=== PATIENT | male | born 1955 | race Caucasian/White ===

== ENCOUNTER → 2018-05-17 06:58 | Outpatient (CLI) | payer BC, SELFPAY ==
--- NOTE | 2018-05-17 07:08 | XR_ITS ---
XR shoulder RT min 2V HISTORY: ITS.REASON: ROTATOR CUFF SYNDROME, shoulder pain ORDERING PHYSICIAN: Saud Knox MD PATIENT AGE: 63 years Comparison: None FINDINGS: There is mild acromioclavicular arthropathy. There is a downsloping acromion laterally with subacromial stenosis. Mild osteoarthritic changes are also present at the glenohumeral joint. No fracture or dislocation. No lytic or blastic change. Incidental calcified granuloma noted in the right upper lobe. 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 MRI may confirm if clinically warranted.
[2018-05-17 08:23] LABS: Basophils # 0.1 K/mm3 (0-0.2); Basophils % 0.8 % (0.1-2.0); Eosinophils # 0.4 K/mm3 (0.0-0.4); Eosinophils % 5.2 % (0.1-12.0); Hematocrit 40.3 % (42.0-52.0); Hemoglobin 13.5 g/dL (14.1-18.0); Lymphocytes # 1.4 K/mm3 (0.7-4.5); Mean Corpuscular HGB Conc 33.6 g/dL (31.8-35.4); Mean Corpuscular Hemoglobin 28.5 pg (27.0-31.2); Mean Corpuscular Volume 84.9 fl (80-94); Mean Platelet Volume 6.8 fl (7.4-10.4); Monocytes # 0.6 K/mm3 (0.1-1.0); Monocytes % 7.5 % (1.7-9.3); Neutrophils # 5.4 K/mm3 (1.8-7.8); Neutrophils % 68.4 % (37.0-80.0); Platelet Count 199 K/mm3 (142-424); Red Blood Count 4.75 M/mm3 (4.60-6.20); Red Cell Distribution Width 13.7 % (11.5-17.5); White Blood Count 7.9 K/mm3 (4.8-10.8)
[2018-05-17 09:18] LABS: Alanine Aminotransferase 22 U/L (12-78); Albumin Level 3.5 gm/dL (3.4-5.0); Alkaline Phosphatase 80 U/L (46-116); Anion Gap 5.4 mEq/L (5-15); Aspartate Amino Transferase 9 U/L (15-37); Bilirubin,Direct 0.1 mg/dL (0.0-0.2); Bilirubin,Indirect 0.5 mg/dL (0.0-0.9); Bilirubin,Total 0.6 mg/dL (0.2-1.0); Blood Urea Nitrogen 20 mg/dL (7-18); Calcium 8.5 mg/dL (8.5-10.1); Carbon Dioxide 38 mmol/L (21.0-32.0); Chloride 104 mmol/L (98-107); Chol/HDL Ratio 4.6 (1-3.5); Cholesterol 179 mg/dL (140-200); Creatinine,Serum 1.03 mg/dL (0.70-1.30); Estimated Glomerular Filt Rate 73 ml/min (>60); Free T4 (Free Thyroxine) 0.97 ng/dl (0.76-1.46); GFR (African American) 89 ML/MIN (>60); Glucose 103 mg/dL (74-106); HDL Cholesterol 39 mg/dL (27-67); LDL Cholesterol 126 mg/dL (0-130); Potassium 3.4 mmoL/L (3.5-5.1); Sodium 144 mmol/L (136-145); Thyroid Stimulating Hormone 4.19 uIU/ml (0.358-3.740); Total Protein,Serum 6.6 gm/dL (6.4-8.2); Triglycerides 70 mg/dL (30-200); VLDL Cholesterol 14 mg/dL (0-40)
== END ==
PROVIDERS: PCP Family Medicine; Visit Provider Internal Medicine
DX: I10 Essential (primary) hypertension (principal); I20.9 Angina pectoris, unspecified; R06.00 Dyspnea, unspecified; R60.9 Edema, unspecified; Z82.49 Family history of ischemic heart disease and other diseases of the circulatory system; I51.9 Heart disease, unspecified; M25.511 Pain in right shoulder
CPT/HCPCS: 36415; 73030; 80048; 80061; 80076; 84439; 84443; 85025

== ENCOUNTER → 2018-06-19 07:41 | Outpatient (CLI) | payer BC, SELFPAY ==
[2018-06-19 09:28] LABS: Alanine Aminotransferase 23 U/L (12-78); Albumin Level 3.4 gm/dL (3.4-5.0); Alkaline Phosphatase 81 U/L (46-116); Anion Gap 8.3 mEq/L (5-15); Aspartate Amino Transferase 12 U/L (15-37); Bilirubin,Direct 0.1 mg/dL (0.0-0.2); Bilirubin,Indirect 0.4 mg/dL (0.0-0.9); Bilirubin,Total 0.5 mg/dL (0.2-1.0); Blood Urea Nitrogen 21 mg/dL (7-18); Calcium 8.3 mg/dL (8.5-10.1); Carbon Dioxide 35 mmol/L (21.0-32.0); Chloride 103 mmol/L (98-107); Chol/HDL Ratio 3.1 (1-3.5); Cholesterol 143 mg/dL (140-200); Creatinine,Serum 1.01 mg/dL (0.70-1.30); Estimated Glomerular Filt Rate 75 ml/min (>60); GFR (African American) 91 ML/MIN (>60); Glucose 96 mg/dL (74-106); HDL Cholesterol 46 mg/dL (27-67); LDL Cholesterol 90 mg/dL (0-130); Potassium 3.3 mmoL/L (3.5-5.1); Sodium 143 mmol/L (136-145); Total Protein,Serum 6.4 gm/dL (6.4-8.2); Triglycerides 37 mg/dL (30-200); VLDL Cholesterol 7 mg/dL (0-40)
== END ==
PROVIDERS: PCP Family Medicine; Visit Provider Urology
DX: E78.5 Hyperlipidemia, unspecified (principal); I10 Essential (primary) hypertension; E03.9 Hypothyroidism, unspecified
CPT/HCPCS: 36415; 80048; 80061; 80076

== ENCOUNTER → 2020-09-06 16:20 | Outpatient (CLI) | payer BC, SELFPAY | PROVIDERS: PCP Nurse Practitioner; Visit Provider Nurse Practitioner | DX: Z20.828 Contact with and (suspected) exposure to other viral communicable diseases (principal); U07.1 COVID-19 | CPT/HCPCS: U0003 ==

== ENCOUNTER 2021-01-03 08:37 | Emergency (ER) | payer BC, SELFPAY ==
[2021-01-03 08:38] VITALS: BP 144/86; PULSE 65; RESP 18; TEMP 36.6; O2SAT 98; BMI 34.5
--- NOTE | 2021-01-03 10:09 | HMH.EDGENADL ---
ED Disposition Clinical Impression: Complex laceration of left ear Disposition: Home, Self-Care Condition on Discharge: Good Instructions: DI for Laceration Repair Additional Instructions: Follow-up with swine genetics researcher within the next 5 to 7 days for reexamination, please call Dr Parikh's office at [phone], for followup. Take antibiotics as prescribed. Return to emergency department within the next 24 hours should she have worsening pain fever nausea vomiting or any other concerns Prescriptions: cephALEXin [Cephalexin 500mg Tab] 500 mg PO BID 5 Days #10 tab Transmission Status: Pending to [facility] Ciprofloxacin HCl 500 mg PO BID 5 Days #10 tab Transmission Status: Pending to [id number] Referrals: Sergio Duran MD [Primary Care Provider] - - Critical Care Critical Care Time: No Attestation: On 01/03/21, the high probability of a clinically significant, sudden or life threatening deterioration of the following system(s) required my full and direct attention, intervention and personal management. The time I documented below is in addition to time spent performing reported procedures but includes the following listed in this critical care notation. Medical Decision Making - Medical Records Medical records reviewed: Yes: I reviewed the patient's medical records. - Tanner Inquiry Pt receiving controlled substance: No Vital Signs: 01/03/21 08:38 Temperature 97.9 F Temperature Source Oral Pulse Rate [Left Radial] 65 Respiratory Rate 18 Blood Pressure [Right Arm] 144/86 H Blood Pressure Mean [Right Arm] 105 02 Sat by Pulse Oximetry 98 Oxygen Delivery Method Room Air Orders (Tests/Meds): ED MEDICATIONS Discontinued Medications Generic Name Dose Route Start Last Admin Trade Name Rahul PRN Reason Stop Dose Admin Lidocaine HCl 20 ml 01/03/21 09:05 01/03/21 09:07 Lidocaine 1% 20ml Mdv IJ 01/03/21 09:06 20 ml ONCE ONE Administration Tetanus/Reduced Diphtheria/Acell Pertussis 0.5 ml 01/03/21 10:07 Tet/Diphth/Pert-Adult 0.5ml Syringe IM 01/03/21 10:08 .ONCE ONE Medical Decision Narrative: Patient presents with complex ear laceration as above. He was in no acute distress nontoxic-appearing negative per [place] head CT rule and no indication with normal neurological exam for further imaging of head. He also was negative per his criteria for cervical spine emergency. The ear laceration was an ethicist sized with ear block and copiously irrigated. Hematoma was removed prior to laceration repair. Laceration was repaired at bedside with appropriate reapproximation of perichondrium and skin layer using Monocryl 5.0 he will return for strict return precautions as well. Tetanus was updated as well. Due to risk for infection in place and was placed in a compressive head dressing with Xeroform gauze over site of laceration. In addition we will cover him with antimicrobial coverage including coverage for Pseudomonas. He is agreeable to follow-up with swine genetics researcher for reexamination. General Adult HPI - General Chief complaint: Wound/Laceration Stated complaint: [id number] fell and hit ear Time Seen by Provider: 01/03/21 08:40 Mode of Arrival: Ambulatory Limitations: No Limitations Description of Symptoms (Recalled from ER Triage Doc. by RN): Pt states he was dreaming and rolled out of bed, thinks he hit head/ear on night stand, ear lacerations present to left ear - History of Present Illness HPI narrative: 65-year-old male presents with laceration to his left ear. He says that he rolled out of bed and had it on the hardwood floor. No loss of consciousness headache nausea vomiting seizures numbness weakness or tingling arms or legs. No neck tenderness or pain. He says the bleeding was profuse initially he is on a baby aspirin however it is better now. Tetanus shot has been over 10 years ago. Location: left Radi
[2021-01-03 10:38] VITALS: BP 144/86; PULSE 65; RESP 18; TEMP 36.6; O2SAT 98
== END 2021-01-03 10:42 | disposition home or self-care (01) ==
PROVIDERS: Emergency Provider Emergency Medicine; PCP Family Medicine
DX: S01.312A Laceration without foreign body of left ear, initial encounter (principal); W06.XXXA Fall from bed, initial encounter; Y92.013 Bedroom of single-family (private) house as the place of occurrence of the external cause; Z23 Encounter for immunization; I10 Essential (primary) hypertension; K21.9 Gastro-esophageal reflux disease without esophagitis; Z79.899 Other long term (current) drug therapy
CPT/HCPCS: 12013; 90471; 90715; 96372; 99281

== ENCOUNTER 2021-04-20 14:18 | Emergency (ER) | payer MEDICARE, SELFPAY ==
[2021-04-20 15:13] VITALS: BP 142/90; PULSE 71; RESP 22; TEMP 36.8; O2SAT 96; BMI 38.4
--- NOTE | 2021-04-20 15:49 | HMH.EDUTC ---
[facility] Disposition Clinical Impression: Bronchitis Sinusitis Qualifiers: Sinusitis location: unspecified location Chronicity: unspecified Qualified Code(s): J32.9 - Chronic sinusitis, unspecified Disposition: Home, Self-Care Condition on Discharge: Good Instructions: Sinusitis, Acute Bronchitis, DI for Sinusitis, Benzonatate, Azithromycin Additional Instructions: ? Start antibiotic today. Be sure to complete entire prescription even if feeling better ? Monitor temp. Tylenol every 4 hours as needed and / or ibuprofen every 6 hours as needed ( As long as your primary care physician has told you that it ok to take both. For fever/aches/pains ER if no less than 101 despite Tylenol or Motrin ? Humidifier/vaporizer or hot steamy shower ? Inhaler every 4-6 hours as needed like we discussed. If unsure how to use it, ask pharmacist to demonstrate how. Should help open airways and improve cough, wheezing, and shortness of breath *Tessalon Perles will not cause drowsiness but use at bedtime to help stop cough so that you may get some rest. *Start steroid today. Helps with inflammation therefore, cough and wheezing. Follow directions on the package. Reviewed side effects. Patient reports taking them before. Follow up IMMEDIATELY for new or worsening of symptoms OR no noticeable improvement over the next 48-72 hours. 911 immediately for any life threatening symptoms such as chest pain or difficulty breathing Prescriptions: Benzonatate [Tessalon Perle 100mg Cap*] 100 mg PO TID PRN #15 cap PRN Reason: Cough Transmission Status: Pending to [facility] Azithromycin [Z-Samuel 250mg Tab] 250 mg PO DIRECTED #6 tab Transmission Status: Pending to [facility] Referrals: Sergio Duran MD [Primary Care Provider] - As needed Time of Disposition: 16:41 Medical Decision Making - Tanner Inquiry Pt receiving controlled substance: No Tanner was queried for this patient: No Vital Signs: 04/20/21 15:13 04/20/21 15:51 Temperature 98.3 F 98.3 F Temperature Source Oral Pulse Rate 71 Pulse Rate [Right Brachial] 71 Respiratory Rate 22 22 Blood Pressure 142/90 H Blood Pressure [Right Arm] 142/90 H Blood Pressure Mean [Right Arm] 107 Blood Pressure Source [Right Arm] Automatic Cuff Blood Pressure Position [Right Arm] Sitting 02 Sat by Pulse Oximetry 96 Oxygen Delivery Method Room Air - Lab Data Lab Results 04/20/21 15:50: Strep Scn Rapid Clinic Negative Orders (Tests/Meds): ED MEDICATIONS Discontinued Medications Generic Name Dose Route Start Last Admin Trade Name Rahul PRN Reason Stop Dose Admin Ceftriaxone Sodium 1 gm 04/20/21 16:05 04/20/21 16:18 Ceftriaxone 1gm Vial IM 04/20/21 16:06 1 gm ONCE ONE Administration Lidocaine HCl 0 ml 04/20/21 16:05 04/20/21 16:18 Lidocaine 1% 5ml Pf Vial IM 04/20/21 16:06 2.1 ml ONCE ONE Administration Methylprednisolone Sodium Succinate 125 mg 04/20/21 16:05 04/20/21 16:18 Methylprednisolone Sod Succ 125mg Vial IM 04/20/21 16:06 125 mg ONCE ONE Administration ORDERS Category Date Time Status Covid-19 Nasal PCR ([facility]) Routine Lab 04/20/21 15:06 Received Strep Screen Confirmation Stat Micro 04/20/21 15:50 Received Medical Decision Narrative: Medications discussed with pharmacy [facility] HPI - General Stated complaint: cough sore chest muscle sob congestion Time Seen by Provider: 04/20/21 15:50 Mode of Arrival: Ambulatory Limitations: No Limitations Description of Symptoms (Recalled from Triage Doc. by RN): PATIENT C/O SOA, CONGESTION, AND RUNNY NOSE X 3 DAYS HEENT Symptoms (Recalled from RN notes): Yes Resp Symptoms (Recalled from RN notes): Yes Skin Symptoms (Recalled from RN notes): No MS Symptoms (Recalled from RN notes): No Functional Status (Recalled from RN notes): WNL - History of Present Illness Provider Complaint: Patient state that he has been having sinus congestion and pressure for over a week and
[2021-04-20 15:51] VITALS: BP 142/90; PULSE 71; RESP 22; TEMP 36.8; O2SAT 96
[2021-04-20 15:57] LABS: UTC Strep Screen (Rapid) Negative (Negative)
== END 2021-04-20 16:48 | disposition home or self-care (01) ==
PROVIDERS: Emergency Provider Nurse Practitioner; PCP Family Medicine
DX: J40 Bronchitis, not specified as acute or chronic (principal); J32.9 Chronic sinusitis, unspecified
CPT/HCPCS: 87880; 96372; 99202; G0463; U0003

== ENCOUNTER → 2022-01-09 09:25 | Outpatient (CLI) | payer MEDICARE, SELFPAY ==
--- NOTE | 2022-01-09 09:31 | XR_ITS ---
FINAL REPORT CLINICAL HISTORY: LOW BACK PAIN THAT SHOOTS INTO RT LEG FINDINGS: LUMBAR SPINE. Five views demonstrate no acute fracture. Mild and moderate degenerative changes are present. Note is made of leftward curvature. There is no malalignment. IMPRESSION: Degenerative changes without acute process. Reviewed, Interpreted and Dictated by Juan Jose Toscano III, MD Transcribed by Mary Meneses Authenticated by Juna Jose Toscano III, MD on 01/09/2022 10:24:[address] [facility]
--- NOTE | 2022-01-09 09:31 | XR_ITS ---
FINAL REPORT CLINICAL HISTORY: BACK PAIN THAT SHOOTS INTO RT LEG FINDINGS: RIGHT HIP Three views were obtained. There is no acute fracture or dislocation. There are mild degenerative changes of both hips. No soft tissue abnormality is identified. IMPRESSION: Mild degenerative changes. Reviewed, Interpreted and Dictated by Juan Jose Toscano III, MD Transcribed by Mary Meneses Authenticated by Juan Jose Toscano III, MD on 01/09/2022 10:24:30 AM [facility]
== END ==
PROVIDERS: PCP Nurse Practitioner Family; Visit Provider Nurse Practitioner Family
DX: M54.50 Low back pain, unspecified (principal); M25.551 Pain in right hip; M79.604 Pain in right leg
CPT/HCPCS: 72110; 73502

== ENCOUNTER → 2022-01-10 11:26 | Outpatient (CLI) | payer MEDICARE, SELFPAY ==
[2022-01-10 13:04] LABS: Potassium 2.3 mmoL/L (3.5-5.1)
== END ==
PROVIDERS: Visit Provider Nurse Practitioner Family
DX: E87.6 Hypokalemia (principal)
CPT/HCPCS: 36415; 84132

== ENCOUNTER 2022-01-10 13:29 | Emergency (ER) | payer MEDICARE, SELFPAY ==
[2022-01-10 13:30] VITALS: BP 163/89; PULSE 64; RESP 14; TEMP 36.6; O2SAT 97; BMI 34.2
--- NOTE | 2022-01-10 13:35 | PC.NURSE ---
LUIS E Grant at BS
--- NOTE | 2022-01-10 13:47 | PC.NURSE ---
ED MD at
--- NOTE | 2022-01-10 13:51 | HMH.EDGENADL ---
ED Disposition Clinical Impression: Hypokalemia Disposition: Home, Self-Care Condition on Discharge: Good Instructions: DI for Hypokalemia Additional Instructions: Continue taking your potassium as prescribed. Follow-up with your primary care provider next week to have your potassium level rechecked. Referrals: Trish Godinez APRN [Primary Care Provider] - - Critical Care Critical Care Time: No Attestation: On 01/10/22, the high probability of a clinically significant, sudden or life threatening deterioration of the following system(s) required my full and direct attention, intervention and personal management. The time I documented below is in addition to time spent performing reported procedures but includes the following listed in this critical care notation. Medical Decision Making - Tanner Inquiry Pt receiving controlled substance: No Vital Signs: 01/10/22 13:30 01/10/22 14:56 01/10/22 16:05 Temperature 97.8 F 98.0 F Temperature Source Oral Oral Pulse Rate 62 76 Pulse Rate [Right Radial] 64 Respiratory Rate 14 18 15 Blood Pressure 161/85 H 132/81 Blood Pressure [Right Arm] 163/89 H Blood Pressure Mean [Right Arm] 113 Blood Pressure Source Automatic Cuff Blood Pressure Source [Right Arm] Automatic Cuff Blood Pressure Position Sitting Blood Pressure Position [Right Arm] Sitting 02 Sat by Pulse Oximetry 97 96 Oxygen Delivery Method Room Air Room Air - Lab Data Lab Results 01/10/22 13:40: Sodium 141, Potassium 2.2 L*, Chloride 98, Carbon Dioxide 39 H, Anion Gap 6.2, BUN 14, Creatinine 0.90, Estimated Creat Clear 119, Estimated GFR 85, Est GFR ( Amer) 102, Glucose 96, Calcium 8.2 L, Magnesium 1.9 Result diagrams: 01/10/22 13:40 Orders (Tests/Meds): ED MEDICATIONS Discontinued Medications Generic Name Dose Route Start Last Admin Trade Name Freq PRN Reason Stop Dose Admin Potassium Chloride/Water 100 mls @ 100 mls/hr 01/10/22 13:50 Potassium Chloride 10meq/100ml Ivpb IV 01/10/22 15:49 Q1H DENNIS Potassium Chloride/Water 100 mls @ 50 mls/hr 01/10/22 14:00 01/10/22 13:57 Potassium Chloride 20meq/100ml Ivpb IV 01/10/22 15:59 50 mls/hr ONCE ONE Administration Potassium Chloride 40 meq 05/13/22 13:49 01/10/22 13:56 Potassium Chloride 20meq Tab PO 01/10/22 13:50 40 meq ONCE ONE Administration - ECG Data Tracing #1 EKG interpreted by Sergio Moise MD: Rhythm: sinus Rate: 60 [place]: normal Ectopy: none Conduction: Incomplete right bundle branch block ST Segment Changes: none T Wave Changes: none Q Waves: none No evidence of acute ischemia or injury General Adult HPI - General Chief complaint: Recheck/Abnormal Lab/Rx Stated complaint: low potassium Time Seen by Provider: 01/10/22 13:40 Mode of Arrival: Ambulatory Limitations: No Limitations Description of Symptoms (Recalled from ER Triage Doc. by RN): Pt to ED after receiving lab results that he had a low potassium. Advises that he is asymptomatic. States that he has been without his daily dose of potassium for a week or so. - History of Present Illness HPI narrative: States he was told to come in by his primary care provider due to low potassium. He had blood work drawn yesterday. He received a call today and was told to come to the emergency room. He said he told him he prefer just to have his labs repeated. Her repeat potassium level was ordered and was lower than the one from the day prior, he says it was 2.3. He says he has no symptoms. He is on potassium but has been out of it for a week and a half. He is on Lasix and hydrochlorothiazide and has continued to take those medications. He obtained a new prescription for potassium yesterday and took his first dose last night. He takes 20 mEq twice a day. - Related Data Home Medications Medication Instructions Recorded Confirmed esomeprazole magnesium 20 mg 20 mg PO DAILY PRN 04/27/18 06/15/18
[2022-01-10 14:15] LABS: Anion Gap 6.2 mEq/L (5-15); Blood Urea Nitrogen 14 mg/dl (9-20); Calcium 8.2 mg/dl (8.4-10.2); Carbon Dioxide 39 mmol/L (22.0-30.0); Chloride 98 mmol/L (98-107); Creatinine Clearance Estimated 119 mL/min (50-200); Estimated Glomerular Filt Rate 85 ml/min (>60); GFR (African American) 102 ML/MIN (>60); Glucose 96 mg/dl (74-100); Magnesium 1.9 mg/dl (1.6-2.3); Sodium 141 mmol/L (136-145)
[2022-01-10 14:18] LABS: Potassium 2.2 mmoL/L (3.5-5.1)
--- NOTE | 2022-01-10 14:18 | PC.NURSE ---
Lab called a critical potassium of 2.2 MD made aware
--- NOTE | 2022-01-10 14:25 | ECG_ITS ---
APPROVED REPORT Exam: Resting ECG HR:60 bpm ECG Measurements Heart Rate 60 AXES CA 138 P 19 QRSd 110 QRS 26 QT 369 T 28 QTc 369 Conclusion SINUS RHYTHM POSSIBLE LEFT ATRIAL ENLARGEMENT [-0.1mV P-WAVE IN V1/V2] POSSIBLE RIGHT VENTRICULAR CONDUCTION DELAY [RSR (QR) IN V1/V2] NONSPECIFIC T-WAVE ABNORMALITY BORDERLINE ECG UNCONFIRMED REPORT Electronically signed by : Sergio Vargas MD 01/11/2022 07:52:31
[2022-01-10 14:56] VITALS: BP 161/85; PULSE 62; RESP 18; O2SAT 96
--- NOTE | 2022-01-10 15:58 | PC.NURSE ---
IV potassium completed at this time. Pt ambulating to the bathroom.
[2022-01-10 16:05] VITALS: BP 132/81; PULSE 76; RESP 15; TEMP 36.7; O2SAT 98
== END 2022-01-10 16:06 | disposition home or self-care (01) ==
PROVIDERS: Emergency Provider Emergency Medicine; PCP Nurse Practitioner Family
DX: E87.6 Hypokalemia (principal); R53.81 Other malaise; R79.9 Abnormal finding of blood chemistry, unspecified; I11.0 Hypertensive heart disease with heart failure; I50.30 Unspecified diastolic (congestive) heart failure; I45.10 Unspecified right bundle-branch block; K21.9 Gastro-esophageal reflux disease without esophagitis; G47.33 Obstructive sleep apnea (adult) (pediatric); E03.9 Hypothyroidism, unspecified; M19.90 Unspecified osteoarthritis, unspecified site; Z79.82 Long term (current) use of aspirin; Z79.899 Other long term (current) drug therapy; Z87.891 Personal history of nicotine dependence; Z82.49 Family history of ischemic heart disease and other diseases of the circulatory system
CPT/HCPCS: 36415; 80048; 83735; 84132; 93005; 99284

== ENCOUNTER 2022-07-11 17:32 | Emergency (ER) | payer MEDICARE, SELFPAY ==
[2022-07-11 19:00] VITALS: BP 156/82; PULSE 87; RESP 18; TEMP 37.2; O2SAT 95; BMI 34.4
--- NOTE | 2022-07-11 19:05 | XR_ITS ---
PROCEDURE INFORMATION: Exam: XR Chest Exam date and time: 07/11/2022 7:03 PM Age: 67 years old Clinical indication: Shortness of breath and other: Congestion; Additional info: Congestion and shortness of breath TECHNIQUE: Imaging protocol: Radiologic exam of the chest. Views: 2 views. COMPARISON: CR CXR CHEST(2 VIEWS-NOT PORTABLE) 04/07/2016 11:13 AM FINDINGS: Lungs: No evidence of pneumonia or interstitial edema. Unchanged right lower lobe granuloma Pleural spaces: Unremarkable. No pleural effusion. No pneumothorax. Heart/Mediastinum: Unremarkable. No cardiomegaly. Bones/joints: Unremarkable. IMPRESSION: No evidence of pneumonia or interstitial edema.
[2022-07-11 19:16] LABS: UTC Influenza A Antigen Positive (Negative); UTC Influenza B Antigen Negative (Negative)
--- NOTE | 2022-07-11 19:26 | EXP.UTC ---
Discharge Plan Disposition Patient Disposition: Home, Self-Care Condition: Good Prescriptions Prescriptions: New oseltamivir [Tamiflu] 75 mg capsule 75 mg PO Q12H 5 Days Qty: 10 0RF benzonatate 100 mg capsule 100 mg PO TID PRN (Reason: cough) Qty: 30 0RF No Action meloxicam [Mobic] 15 mg tablet 15 mg PO DAILY esomeprazole magnesium [Nexium] 20 mg capsule,delayed release(DR/EC) 20 mg PO DAILY PRN losartan-hydrochlorothiazide 100-25 mg tablet 1 tab PO DAILY bisoprolol fumarate 5 mg tablet 5 mg PO QDAY Qty: 30 5RF aspirin [Adult Low Dose Aspirin] 81 mg tablet,delayed release (DR/EC) 81 mg PO DAILY Qty: 30 5RF furosemide [Lasix] 20 mg tablet 20 mg PO DAILY Qty: 30 5RF levothyroxine 25 mcg capsule 25 mcg PO DAILY amlodipine [Norvasc] 10 mg tablet 10 mg PO DAILY Qty: 30 5RF potassium chloride [Klor-Con M10] 10 mEq tablet,ER particles/crystals 10 meq PO DAILY Qty: 30 5RF Rx Instructions: take one tablet daily atorvastatin 20 mg tablet 20 mg PO DAILY Qty: 30 5RF ciprofloxacin HCl 500 MG tablet 500 mg PO BID 5 Days Qty: 10 0RF cephalexin 500 MG tablet 500 mg PO BID 5 Days Qty: 10 0RF azithromycin 250 MG tablet 250 mg PO DIRECTED Qty: 6 0RF Rx Instructions: Take two (2) tablets on day #1, then one (1) tablet day #2 thru #5 benzonatate 100 MG capsule 100 mg PO TID PRN (Reason: Cough) Qty: 15 0RF Referrals Follow up/Referrals: Jolene Ugalde MD [Primary Care Provider] - See instructions Activity Restrictions/Add. Instructions Additional Instructions/Restrictions: Start Tamiflu today if you are going to take it. Discussed risk and possible benefits. Lots of rest Increase Fluids water, Gatorade, powerade, pedialyte,if infant/toddler/child Alternate Tylenol and / or ibuprofen as discussed for fever, aches, chills Follow up IMMEDIATELY with your family doctor for new or worsening Symptoms OR no noticeable improvement over the next 48-72 hours, 911 for difficulty or breathing You or your child area contagious until no fever, aches, chills for 24 hours with medication for symptoms Help Prevent the spread of influenza: ?Wash your hands often. Use soap and water. Wash your hands after you use the bathroom, change a child's diapers, or sneeze. Wash your hands before you prepare or eat food. Use gel hand cleanser that has 60% alcohol, when soap and water are not available. Do not touch your eyes, nose, or mouth unless you have washed your hands first. Cover your mouth when you sneeze or cough. Cough into a tissue or the bend of your arm. If you use a tissue, throw it away immediately and wash your hands. Clean shared items with a germ-killing grain cleaner and transfer operator. Clean table surfaces, doorknobs, and light switches. Do not share towels, silverware, and dishes with people who are sick. Wash bed sheets, towels, silverware, and dishes with soap and water. Wear a mask over your mouth and nose if you are sick. The face mask may help protect others from becoming infected with the flu. Wear the mask when in common areas of your home or if you seek care with a healthcare provider. Stay away from others if you are sick. Stay at home until 24 hours after your fever and symptoms are gone. Clinical Impressions Clinical Impression: Influenza A Instructions Patient Instructions: DI for Influenza -- Adult Discharge ED Provider: Grace Araiza [facility] General Stated complaint: congestion cough SOB Mode of Arrival: Ambulatory Source of Information: Patient Limitations: No Limitations Time Seen by Provider: 07/11/22 19:26 Description of Symptoms (Recalled from Triage Doc. by RN): PATIENT C/O HEADACHE, DRY COUGH, SOA, AND CONGESTION THAT STARTED YESTERDAY HEENT Symptoms (Recalled from R
[2022-07-11 19:45] VITALS: BP 156/82; PULSE 87; RESP 18; TEMP 37.2; O2SAT 95
== END 2022-07-11 19:49 | disposition home or self-care (01) ==
PROVIDERS: Emergency Provider Nurse Practitioner; PCP Family Medicine
DX: J10.1 Influenza due to other identified influenza virus with other respiratory manifestations (principal)
CPT/HCPCS: 71046; 87804; 99212; G0463

== ENCOUNTER → 2022-07-18 14:18 | Outpatient (CLI) | payer MEDICARE, SELFPAY ==
[2022-07-18 16:00] LABS: Anion Gap 13.7 mEq/L (5-15); Carbon Dioxide 36 mmol/L (22.0-30.0); Chloride 95 mmol/L (98-107); Sodium 142 mmol/L (136-145)
[2022-07-18 17:45] LABS: Potassium 2.7 mmoL/L (3.5-5.1)
== END ==
PROVIDERS: PCP Nurse Practitioner Family; Visit Provider Nurse Practitioner Family
DX: E87.6 Hypokalemia (principal)
CPT/HCPCS: 36415; 80051

== ENCOUNTER 2022-07-18 20:17 | Emergency (ER) | payer MEDICARE, SELFPAY ==
[2022-07-18 20:36] VITALS: BMI 33.3
[2022-07-18 21:00] VITALS: BP 125/77; PULSE 55; O2SAT 92
--- NOTE | 2022-07-18 21:02 | PC.NURSE ---
potassium order held per md request while pending bnp results
[2022-07-18 21:09] LABS: Chloride 94 mmol/L (98-107); Sodium 139 mmol/L (136-145)
[2022-07-18 21:12] LABS: Anion Gap 10.4 mEq/L (5-15); Blood Urea Nitrogen 17 mg/dl (9-20); Calcium 8.4 mg/dl (8.4-10.2); Carbon Dioxide 37 mmol/L (22.0-30.0); Creatinine Clearance Estimated 118 mL/min (50-200); Estimated Glomerular Filt Rate 75 ml/min (>60); GFR (African American) 90 ML/MIN (>60); Glucose 158 mg/dl (74-100)
[2022-07-18 21:13] LABS: Potassium 2.4 mmoL/L (3.5-5.1)
[2022-07-18 21:22] VITALS: BP 125/77; PULSE 78; RESP 18; TEMP 36.6; O2SAT 98; BMI 33.3
--- NOTE | 2022-07-18 21:27 | HMH.EDRECH ---
Discharge Plan Disposition Patient Disposition: Home, Self-Care Chief Complaint: Recheck/Abnormal Lab/Rx Prescriptions Prescriptions: No Action meloxicam [Mobic] 15 mg tablet 15 mg PO DAILY esomeprazole magnesium [Nexium] 20 mg capsule,delayed release(DR/EC) 20 mg PO DAILY PRN losartan-hydrochlorothiazide 100-25 mg tablet 1 tab PO DAILY bisoprolol fumarate 5 mg tablet 5 mg PO QDAY Qty: 30 5RF aspirin [Adult Low Dose Aspirin] 81 mg tablet,delayed release (DR/EC) 81 mg PO DAILY Qty: 30 5RF furosemide [Lasix] 20 mg tablet 20 mg PO DAILY Qty: 30 5RF levothyroxine 25 mcg capsule 25 mcg PO DAILY amlodipine [Norvasc] 10 mg tablet 10 mg PO DAILY Qty: 30 5RF potassium chloride [Klor-Con M10] 10 mEq tablet,ER particles/crystals 10 meq PO DAILY Qty: 30 5RF Rx Instructions: take one tablet daily atorvastatin 20 mg tablet 20 mg PO DAILY Qty: 30 5RF ciprofloxacin HCl 500 MG tablet 500 mg PO BID 5 Days Qty: 10 0RF cephalexin 500 MG tablet 500 mg PO BID 5 Days Qty: 10 0RF azithromycin 250 MG tablet 250 mg PO DIRECTED Qty: 6 0RF Rx Instructions: Take two (2) tablets on day #1, then one (1) tablet day #2 thru #5 benzonatate 100 MG capsule 100 mg PO TID PRN (Reason: Cough) Qty: 15 0RF oseltamivir [Tamiflu] 75 mg capsule 75 mg PO Q12H 5 Days Qty: 10 0RF benzonatate 100 mg capsule 100 mg PO TID PRN (Reason: cough) Qty: 30 0RF Referrals Follow up/Referrals: Nettie Kim APRN [Primary Care Provider] - See instructions Clinical Impressions Clinical Impression: Hypokalemia Discharge ED Provider: Emir Gonsaleseck HPI General Chief Complaint: Recheck/Abnormal Lab/Rx Stated Complaint: abnormal labs Time Seen by Provider: 07/18/22 21:28 Mode of Arrival: Ambulatory Source of Information: Patient, Spouse and Medical Record Limitations: No Limitations Description of Symptoms (Recalled from ER Triage Doc. by RN): patient states he had basic labs drawn this afternoon and was notified by lab that his potassium was low so he came in for evaluation. History of Present Illness HPI narrative: pt with low k and no specific c/o presents for lesia RICHARDSON complaint: abnormal lab Initial visit (ago): hour(s) Returns today for: called because of abnormal lab/test Symptoms since prior visit: no new symptoms Context: called for abnormal lab result Associated symptoms: none Related Data Home Medications Medication Instructions Recorded Confirmed esomeprazole magnesium 20 mg 20 mg PO DAILY PRN 04/27/18 06/15/18 capsule,delayed release (Nexium) losartan 100 1 tab PO DAILY 04/27/18 06/15/18 mg-hydrochlorothiazide 25 mg tablet meloxicam 15 mg tablet (Mobic) 15 mg PO DAILY 04/27/18 06/15/18 levothyroxine 25 mcg capsule 25 mcg PO DAILY 06/15/18 06/15/18 Previous Rx's Medication Instructions Recorded aspirin 81 mg tablet,delayed 81 mg PO DAILY #30 tabs 04/27/18 release (Adult Low Dose Aspirin) bisoprolol fumarate 5 mg tablet 5 mg PO QDAY #30 tabs 04/27/18 furosemide 20 mg tablet (Lasix) 20 mg PO DAILY #30 tabs 05/11/18 amlodipine 10 mg tablet (Norvasc) 10 mg PO DAILY #30 tabs 08/03/18 potassium chloride 10 mEq 10 meq PO DAILY #30 tabs 09/20/18 tablet,extended release(part/cryst) (Klor-Con M) atorvastatin 20 mg tablet 20 mg PO DAILY #30 tabs 10/18/18 cephalexin 500 mg tablet 500 mg PO BID 5 days #10 tabs 01/03/21 ciprofloxacin HCl 500 mg tablet 500 mg PO BID 5 days #10 tabs 01/03/21 azithromycin 250 mg tablet 250 mg PO DIRECTED #6 tabs 04/20/21 benzonatate 100 mg capsule 100 mg PO TID PRN Cough #15 caps 04/20/21 benzonatate 100 mg capsule 100 mg PO TID PRN cough #30 caps 07/11/22 oseltamivir 75 mg capsule (Tamiflu) 75 mg PO Q12H 5 days #10 caps 07/11/22 Allergies Allergy/AdvReac Type Severity Reaction Status Date / Time No Known Allergies Allergy Verified 07/11/22 19:06 PFSH PFSH Medical History (Up
[2022-07-18 21:31] VITALS: BP 140/80; PULSE 61; O2SAT 95
[2022-07-18 22:00] VITALS: BP 142/78; PULSE 55; O2SAT 92
[2022-07-18 22:30] VITALS: BP 156/87; PULSE 54; O2SAT 93
[2022-07-18 23:34] VITALS: BP 150/84; PULSE 59; RESP 18; TEMP 36.9; O2SAT 92
== END 2022-07-18 23:34 | disposition home or self-care (01) ==
PROVIDERS: Emergency Provider Emergency Medicine; PCP Nurse Practitioner Family
DX: E87.6 Hypokalemia (principal); Z79.899 Other long term (current) drug therapy; J44.9 Chronic obstructive pulmonary disease, unspecified; I10 Essential (primary) hypertension; E78.5 Hyperlipidemia, unspecified; E03.9 Hypothyroidism, unspecified; G47.33 Obstructive sleep apnea (adult) (pediatric)
CPT/HCPCS: 36415; 80048; 80051; 96365; 96366; 96367; 99284

== ENCOUNTER → 2022-08-18 09:00 | Outpatient (CLI) | payer MEDICARE, SELFPAY ==
[2022-08-18 10:10] LABS: Potassium 2.7 mmoL/L (3.5-5.1)
== END ==
PROVIDERS: PCP Nurse Practitioner Family; Visit Provider Family Medicine
DX: E87.6 Hypokalemia (principal)
CPT/HCPCS: 36415; 84132

== ENCOUNTER → 2022-08-28 11:25 | Outpatient (CLI) | payer MEDICARE, SELFPAY ==
[2022-08-28 12:38] LABS: Potassium 3.9 mmoL/L (3.5-5.1)
== END ==
PROVIDERS: PCP Family Medicine; Visit Provider Nurse Practitioner Family
DX: E87.6 Hypokalemia (principal)
CPT/HCPCS: 36415; 84132

== ENCOUNTER → 2022-09-26 08:28 | Outpatient (CLI) | payer MEDICARE, SELFPAY ==
[2022-09-26 10:09] LABS: Potassium 2.7 mmoL/L (3.5-5.1)
== END ==
PROVIDERS: PCP Family Medicine; Visit Provider Nurse Practitioner Family
DX: E87.5 Hyperkalemia (principal)
CPT/HCPCS: 36415; 84132

== ENCOUNTER → 2022-10-01 08:25 | Outpatient (CLI) | payer MEDICARE, SELFPAY ==
[2022-10-01 10:58] LABS: Potassium 2.7 mmoL/L (3.5-5.1)
== END ==
PROVIDERS: PCP Nurse Practitioner Family; Visit Provider Nurse Practitioner Family
DX: E87.6 Hypokalemia (principal)
CPT/HCPCS: 36415; 84132

== ENCOUNTER → 2022-10-08 15:24 | Outpatient (CLI) | payer MEDICARE, SELFPAY ==
[2022-10-08 19:06] LABS: Potassium 3.4 mmoL/L (3.5-5.1)
== END ==
PROVIDERS: PCP Nurse Practitioner Family; Visit Provider Nurse Practitioner Family
DX: E87.6 Hypokalemia (principal)
CPT/HCPCS: 36415; 84132

== ENCOUNTER → 2022-10-15 15:17 | Outpatient (CLI) | payer MEDICARE, SELFPAY | PROVIDERS: PCP Family Medicine; Visit Provider Nurse Practitioner Family | DX: E87.6 Hypokalemia (principal) | CPT/HCPCS: 36415; 84132 ==

== ENCOUNTER → 2022-10-24 08:45 | Outpatient (CLI) | payer MEDICARE, SELFPAY ==
[2022-10-24 09:51] LABS: Potassium 3.5 mmoL/L (3.5-5.1)
== END ==
PROVIDERS: PCP Nurse Practitioner Family; Visit Provider Nurse Practitioner Family
DX: E87.6 Hypokalemia (principal)
CPT/HCPCS: 36415; 84132

== ENCOUNTER → 2023-01-20 08:38 | Outpatient (CLI) | payer MEDICARE, SELFPAY ==
[2023-01-20 09:49] LABS: Potassium 2.9 mmoL/L (3.5-5.1)
== END ==
PROVIDERS: PCP Nurse Practitioner Family; Visit Provider Nurse Practitioner Family
DX: E87.6 Hypokalemia (principal)
CPT/HCPCS: 36415; 84132

== ENCOUNTER → 2023-01-28 08:10 | Outpatient (CLI) | payer MEDICARE, SELFPAY ==
[2023-01-28 10:31] LABS: Potassium 3.4 mmoL/L (3.5-5.1)
[2023-01-29 12:26] LABS: Magnesium 2.1 mg/dl (1.6-2.3)
== END ==
PROVIDERS: Physician Assistant; PCP Nurse Practitioner Family; Visit Provider Nurse Practitioner Family
DX: E87.6 Hypokalemia (principal)
CPT/HCPCS: 36415; 83735; 84132

== ENCOUNTER → 2023-02-05 08:25 | Outpatient (CLI) | payer MEDICARE, SELFPAY ==
[2023-02-05 09:25] LABS: Basophils # 0.1 K/mm3 (0-0.2); Basophils % 0.8 % (0.1-2.0); Eosinophils # 0.4 K/mm3 (0.0-0.4); Eosinophils % 4.3 % (0.1-12.0); Hematocrit 41.4 % (42.0-52.0); Hemoglobin 13.6 g/dL (14.1-18.0); Lymphocytes # 1.4 K/mm3 (0.7-4.5); Lymphocytes % 16.6 % (10-50); Mean Corpuscular Hemoglobin 28.1 pg (27.0-31.2); Mean Corpuscular Volume 85.3 fl (80-94); Mean Platelet Volume 7.7 fl (7.4-10.4); Monocytes # 0.5 K/mm3 (0.1-1.0); Monocytes % 6.3 % (1.7-9.3); Neutrophils % 72.1 % (37.0-80.0); Platelet Count 190 K/mm3 (142-424); Red Blood Count 4.85 M/mm3 (4.60-6.20); Red Cell Distribution Width 14.3 % (11.5-17.5); White Blood Count 8.3 K/mm3 (4.8-10.8)
[2023-02-05 09:55] LABS: Alanine Aminotransferase 22 U/L (12-78); Albumin Level 3.7 g/dl (3.5-5.0); Alkaline Phosphatase 83 U/L (38-126); Anion Gap 11.3 mEq/L (5-15); Aspartate Amino Transferase 27 U/L (17-59); Bilirubin,Indirect 0.9 mg/dL (0.0-0.9); Bilirubin,Total 0.9 mg/dl (0.2-1.3); Blood Urea Nitrogen 11 mg/dl (9-20); Calcium 8.4 mg/dl (8.4-10.2); Carbon Dioxide 34 mmol/L (22.0-30.0); Chloride 100 mmol/L (98-107); Cholesterol 124 mg/dl (140-200); Estimated Glomerular Filt Rate 97 ml/min (>60); GFR (African American) 117 ML/MIN (>60); Glucose 95 mg/dl (74-100); HDL Cholesterol 42 mg/dl (40-60); Magnesium 1.9 mg/dl (1.6-2.3); Potassium 3.3 mmoL/L (3.5-5.1); Sodium 142 mmol/L (136-145); Total Protein,Serum 6.3 g/dl (6.3-8.2); Triglycerides 43 mg/dl (30-150); VLDL Cholesterol 9 mg/dL (0-40)
[2023-02-05 10:06] LABS: Direct LDL Cholesterol 66.52 mg/dL (100-129)
[2023-02-05 10:28] LABS: Thyroid Stimulating Hormone 3.53 uIU/mL (0.465-4.68)
== END ==
PROVIDERS: PCP Nurse Practitioner Family; Visit Provider Physician Assistant
DX: E78.5 Hyperlipidemia, unspecified (principal); I10 Essential (primary) hypertension; I20.8 Other forms of angina pectoris; R06.00 Dyspnea, unspecified; R06.01 Orthopnea; R06.02 Shortness of breath; R60.0 Localized edema
CPT/HCPCS: 36415; 80048; 80061; 80076; 83735; 84439; 84443; 85025

== ENCOUNTER → 2023-02-11 14:57 | Outpatient (CLI) | payer MEDICARE, SELFPAY | PROVIDERS: PCP Nurse Practitioner Family; Visit Provider Physician Assistant | DX: E78.5 Hyperlipidemia, unspecified (principal); I20.8 Other forms of angina pectoris; R06.00 Dyspnea, unspecified; R06.01 Orthopnea; R06.02 Shortness of breath; R60.0 Localized edema; I50.9 Heart failure, unspecified; I11.0 Hypertensive heart disease with heart failure | CPT/HCPCS: 93306 ==

== ENCOUNTER → 2023-02-12 07:59 | Outpatient (CLI) | payer MEDICARE, SELFPAY ==
[2023-02-12 08:52] LABS: Chloride 103 mmol/L (98-107); Sodium 140 mmol/L (136-145)
[2023-02-12 08:55] LABS: Blood Urea Nitrogen 16 mg/dl (9-20)
[2023-02-12 08:56] LABS: Calcium 8.1 mg/dl (8.4-10.2); Carbon Dioxide 32 mmol/L (22.0-30.0); Estimated Glomerular Filt Rate 97 ml/min (>60); GFR (African American) 117 ML/MIN (>60); Glucose 98 mg/dl (74-100)
== END ==
PROVIDERS: PCP Nurse Practitioner Family; Visit Provider Physician Assistant
DX: E78.5 Hyperlipidemia, unspecified (principal); I10 Essential (primary) hypertension; I51.9 Heart disease, unspecified; R53.83 Other fatigue
CPT/HCPCS: 36415; 80048; 83735

== ENCOUNTER → 2023-03-05 09:16 | Outpatient (CLI) | payer MEDICARE, SELFPAY ==
[2023-03-05 10:18] LABS: Anion Gap 10.4 mEq/L (5-15); Blood Urea Nitrogen 18 mg/dl (9-20); Calcium 8.1 mg/dl (8.4-10.2); Carbon Dioxide 31 mmol/L (22.0-30.0); Chloride 103 mmol/L (98-107); Estimated Glomerular Filt Rate 75 ml/min (>60); GFR (African American) 90 ML/MIN (>60); Glucose 97 mg/dl (74-100); Potassium 4.4 mmoL/L (3.5-5.1); Sodium 140 mmol/L (136-145)
== END ==
PROVIDERS: PCP Nurse Practitioner Family; Visit Provider Physician Assistant
DX: E78.5 Hyperlipidemia, unspecified (principal); G47.33 Obstructive sleep apnea (adult) (pediatric); I10 Essential (primary) hypertension; R06.00 Dyspnea, unspecified; R06.01 Orthopnea; R06.02 Shortness of breath; R60.0 Localized edema; Z99.89 Dependence on other enabling machines and devices
CPT/HCPCS: 36415; 80048

== ENCOUNTER → 2023-06-18 12:26 | Outpatient (CLI) | payer MEDICARE, SELFPAY ==
--- NOTE | 2023-06-18 12:30 | XR_ITS ---
FINAL REPORT CLINICAL HISTORY: right tib fib COMPARISON: None FINDINGS: There is no acute fracture or dislocation. There is moderate knee degenerative change and moderate ankle degenerative change on the right side. Calcaneal spurs are present. There is no soft tissue abnormality. IMPRESSION: No acute bony abnormality. Moderate right knee and mild right ankle degenerative change. Reviewed, Interpreted and Dictated by Juan Jose Toscano III, MD Transcribed by Mindy Cary Authenticated and [facility]
== END ==
PROVIDERS: PCP Nurse Practitioner Family; Visit Provider Orthopaedic Surgery
DX: S82.201A Unspecified fracture of shaft of right tibia, initial encounter for closed fracture (principal); S82.401A Unspecified fracture of shaft of right fibula, initial encounter for closed fracture
CPT/HCPCS: 73590

== ENCOUNTER → 2023-08-18 09:14 | Outpatient (CLI) | payer MEDICARE, SELFPAY ==
[2023-08-18 10:37] LABS: Chloride 106 mmol/L (98-107); Potassium 4.4 mmoL/L (3.5-5.1); Sodium 140 mmol/L (136-145)
[2023-08-18 10:39] LABS: Alanine Aminotransferase 18 U/L (12-78); Albumin Level 3.9 g/dl (3.5-5.0); Albumin/Globulin Ratio 1.5 (1.1-1.8); Alkaline Phosphatase 69 U/L (38-126); Anion Gap 11.4 mEq/L (5-15); Aspartate Amino Transferase 21 U/L (17-59); Bilirubin,Total 0.4 mg/dl (0.2-1.3); Blood Urea Nitrogen 15 mg/dl (9-20); Carbon Dioxide 27 mmol/L (22.0-30.0); Estimated Glomerular Filt Rate 75 ml/min (>60); GFR (African American) 90 ML/MIN (>60); Globulin 2.6 g/dL (1.3-3.2); Total Protein,Serum 6.5 g/dl (6.3-8.2)
[2023-08-18 10:40] LABS: Calcium 8.5 mg/dl (8.4-10.2); Chol/HDL Ratio 2.8 (1-3.5); Cholesterol 127 mg/dl (140-200); Glucose 73 mg/dl (74-100); HDL Cholesterol 46 mg/dl (40-60); Triglycerides 43 mg/dl (30-150); VLDL Cholesterol 9 mg/dL (0-40)
[2023-08-18 10:51] LABS: Direct LDL Cholesterol 72.46 mg/dL (100-129)
[2023-08-18 11:11] LABS: Thyroid Stimulating Hormone 0.91 uIU/mL (0.465-4.68)
== END ==
PROVIDERS: PCP Nurse Practitioner; Visit Provider Nurse Practitioner
DX: E03.9 Hypothyroidism, unspecified (principal); I10 Essential (primary) hypertension; E78.00 Pure hypercholesterolemia, unspecified; Z87.891 Personal history of nicotine dependence
CPT/HCPCS: 36415; 80053; 80061; 84443

== ENCOUNTER 2023-11-25 11:14 | Outpatient (CLI) | payer MEDICARE, SELFPAY ==
--- NOTE | 2023-11-25 11:14 | NM_ITS ---
APPROVED REPORT Exam: Nuclear Stress Test Indication: Chest pain, SOB, HTN, High cholesterol Patient Location: Outpatient Stress Tech: Carolyn Frey [place] Tech:Luz Mas, ARRT, RT (R)(N) Ht: 6 ft 0 in Wt: 253 lbs HR: 68 bpm BP: 156/83 mmHg BSA: 2.35 m2 Rhythm: NSR TID: 1.03 History: Chest pain, SOB, HTN, High cholesterol Procedure: Patient exercised on Mick protocol 6:00 minutes and sec, resting heart rate 68 bpm, resting blood pressure 156/83 mmHg, with exercise maximum heart rate achived was 157 bpm which is 103 % of the maximum predicted heart rate and blood pressure was 193/95 mmHg. Test was stopped due to SOB. Patient denied any complaint of chest pain. Patient has Average exercise capacity, achieved 7.0 METs of workload on treadmill, the blood pressure response to exercise was normal. Cardiac Stress and Resting SPECT Images: Cardiac Stress and Resting SPECT images were obtained using technetium 99m Myoview 32.7 mCi stress and 10.54 mCi at rest. Raw images demonstrate significant diaphragmatic overlap with the inferior border of the LV wall. This may affect the diagnostic interpretation of the study findings. Resting and stress imaging in supine positions demonstrate a large sized, moderate, fixed perfusion defect in the inferior LV wall. This is no longer visualized with prone stress imaging. Findings are suggestive of diaphragmatic attenuation. Gated imaging demonstrates normal global and regional LV systolic function. LVEF is calculated at 56%. Conclusion: Diaphragmatic attenuation is present. No definite evidence of fixed or reversible perfusion defects. Gated imaging demonstrates normal global and regional LV systolic function. LVEF is calculated at 56%. Electronically signed by : Dianna Gauthier MD 11/26/2023 12:14:48
[2023-11-25] MEDS: ISOTOPE MYOVIEW (PER STUDY) 1 DOSE IV (13:04)
[2023-11-25] MEDS: SODIUM CHLORIDE 0.9% 10ML SYR (RAD ONLY) 10 ML IV ×2 (13:04)
--- NOTE | 2023-11-25 13:49 | CA_ITS ---
APPROVED REPORT Exam: Exercise Treadmill Technologist: Carolyn Frey Ht: 6 ft 1 in Wt: 264 lbs BSA: 2.42 m2 HR: 55 bpm BP: 156/83 mmHg Rhythm: NSR Indications: i20.8/R06.00, CP, SOA Medical History Medications: Aspirin,,,,, Carvedilol,,,,, Mobic,,,,, Losartan HCTZ,,,,, INSpra,,,,, Klor con,,,,, Stress Test Details Test: Mick HR Resting HR: 68 bpm Max Heart Rate (APMHR): 153 bpm Max HR Achieved: 157 bpm Target HR (85% APMHR): 130 bpm % of APMHR: 103 Recovery HR: 75 bpm HR response to stress: Normal HR response to stress BP Resting BP: 156.0/83.0 mmHg Max BP: 193.0/95.0 mmHg Recovery BP: 170.0/96.0 mmHg BP response to stress: Normal blood pressure response to stress. ECG Resting ECG: Sinus bradycardia, NS ST abnormalities inferiorly, incomplete right bundle branch block. Stress EC.[address] depression Arrhythmia: PACs, PVCs, brief run of SVT Recovery ECG: Return to baseline within 3 minutes of recovery Recovery Arrhythmia: PACs, PVCs Clinical Exercise duration: 06:00 min Highest Stage Achieved: Exercise capacity: 7.0 METs Overall Exercise Capacity for Age: Average Stress ECG Conclusion The patient was able to exercise for a total of 6 minutes, 0 seconds. He achieved a total of 7.0 METS. He has average exercise capacity compared to age and sex matched peers. He has normal HR and BP response to exercise. Symptoms: No chest pain. Arrhythmias/Ectopy: PACs, PVCs. Short run of SVT ST-T Changes: Normal ST response to exercise. Conclusion: Average exercise capacity. No ECG changes at peak stress. Brief episode of SVT, self resolved Myoview images reported separately. Test Summary REST . . . . . . . Sitting REST . . . . . . . Standing REST 04:13 0.0 0.0 68 . 156/ 83 . . Stage 1 01:00 10.0 1.7 95 . . . . Stage 1 02:00 10.0 1.7 108 . . . . Stage 1 03:00 10.0 1.7 115 . 178/ 76 . . Stage 2 01:00 12.0 2.5 121 . . . . Stage 2 . . . . . . . Myoview Injected Stage 2 02:00 12.0 2.5 127 . . . . Stage 2 03:00 12.0 2.5 124 . . . Stop exercise at 06:00 RECOVERY 01:00 0.0 0.0 113 . . . . RECOVERY 02:00 0.0 0.0 86 . . . . RECOVERY 03:00 0.0 0.0 76 . 156/ 93 . . RECOVERY 04:00 0.0 0.0 75 . 186/ 93 . . RECOVERY 05:00 0.0 0.0 73 . 193/ 95 . . RECOVERY 06:00 0.0 0.0 77 . 193/ 95 . . RECOVERY 07:00 0.0 0.0 73 . 170/ 96 . . RECOVERY 08:00 0.0 0.0 73 . 170/ 96 . . RECOVERY 09:00 0.0 0.0 74 . 170/ 96 . . RECOVERY 09:33 0.0 0.0 72 . 164/ 87 . . Electronically signed by : Dianna Gauthier MD 11/26/2023 12:11:56
== END 2023-11-25 23:59 ==
LOC: RAD 11:14
PROVIDERS: PCP Family Medicine; Visit Provider Physician Assistant
DX: R06.02 Shortness of breath (principal); R06.01 Orthopnea; R06.00 Dyspnea, unspecified; Z82.49 Family history of ischemic heart disease and other diseases of the circulatory system; I10 Essential (primary) hypertension; I20.89 Other forms of angina pectoris; Z87.891 Personal history of nicotine dependence
CPT/HCPCS: 78452; 93017; 93018; A9502

== ENCOUNTER 2023-12-01 12:25 | Outpatient (CLI) | payer MEDICARE, SELFPAY ==
--- NOTE | 2023-12-01 12:26 | US_ITS ---
FINAL REPORT TECHNIQUE: Ultrasound images of the kidneys and bladder were obtained. CLINICAL HISTORY: R06.02 - Shortness of breath FINDINGS: The right kidney measures 10.3 cm in length. It is normal in echogenicity. There is no hydronephrosis. The left kidney measures 11.4 cm in length. It is normal in echogenicity. There is no hydronephrosis. On image #31, there is a questionable 1.5 cm mass along the left renal border. The spleen size is within normal limits. Multiple calcified splenic granulomas are noted. IMPRESSION: No hydronephrosis. Questionable 1.5 cm left renal mass. Recommend renal mass protocol CT for further evaluation. Authenticated and ERN
--- NOTE | 2023-12-01 12:53 | CA_ITS ---
FINAL REPORT TECHNIQUE: Grayscale, color Doppler and duplex Doppler ultrasound of the kidneys, aorta and renal arteries was performed. Multiple velocities were measured. CLINICAL HISTORY: HTN FINDINGS: Aorta velocity: 95 cm/sec Right kidney: 10.3 cm. No evidence of hydronephrosis or mass. Right intrarenal RI: 0.65 Right renal artery velocity: 132 cm/sec. Right RAR (Renal artery-Aortic Ratio): 1.4 Left Kidney: 11.3 cm. No evidence of hydronephrosis or mass. Left intrarenal RI: 0.65 Left renal artery velocity: 119 cm/sec. Left RAR (Renal Artery-Aortic Ratio): 1.3 IMPRESSION: No evidence of significant renal artery stenosis. CT angiogram or postcontrast MR angiogram would be more sensitive for evaluation of possible renal artery stenosis. Authenticated and ERN
== END 2023-12-01 23:59 | disposition home or self-care (01) ==
LOC: RAD 12:26
PROVIDERS: PCP Family Medicine; Visit Provider Physician Assistant
DX: R06.02 Shortness of breath (principal); R06.00 Dyspnea, unspecified; R06.01 Orthopnea; Z82.49 Family history of ischemic heart disease and other diseases of the circulatory system; I10 Essential (primary) hypertension; Z87.891 Personal history of nicotine dependence
CPT/HCPCS: 76770; 93976

== ENCOUNTER 2023-12-25 07:28 | Outpatient (CLI) | payer MEDICARE, SELFPAY ==
--- NOTE | 2023-12-25 07:28 | CT_ITS ---
FINAL REPORT TECHNIQUE: Axial CT images of the abdomen were obtained with IV contrast only. Coronal and sagittal reformatted images were also obtained. This study was performed with techniques to keep radiation doses as low as reasonably achievable (ALARA). Individualized dose reduction techniques using automated exposure control or adjustment of mA and/or kV according to the patient's size were employed. CLINICAL HISTORY: renal mass seen on us COMPARISON: None FINDINGS: The lung bases are clear. The liver has an unremarkable appearance, without evidence of mass. The gallbladder appears normal without evidence of gallstones. There is no evidence of biliary ductal dilatation. The pancreas appears normal. The spleen size is within normal limits. There is no evidence of renal mass or hydronephrosis. There is a benign-appearing cyst present in the right kidney anteriorly in the lower pole, measuring 1.7 cm in size. No left renal mass or cyst is identified. There is no evidence of adenopathy. No abnormal fluid collection is seen. No localized inflammatory processes identified. There is diverticulosis of the sigmoid colon present without evidence of acute inflammatory change. A few small scattered calcified mesenteric nodes are incidentally noted. IMPRESSION: 1.7 cm benign-appearing cyst in the right kidney as described. No evidence of left renal mass or cyst is present. Reviewed, Interpreted and Dictated by Jason Humphries MD Transcribed by Mindy Cary Authenticated and [facility]
[2023-12-25 08:16] LABS: Blood Urea Nitrogen 16 mg/dl (9-20); Estimated Glomerular Filt Rate 75 ml/min (>60); GFR (African American) 90 ML/MIN (>60)
[2023-12-25] MEDS: SODIUM CHLORIDE 0.9% 10ML SYR (RAD ONLY) 10 ML IV (08:48)
[2023-12-25] MEDS: IOPAMIDOL-370 (76%);100ML BOTTLE 75 ML IV (08:48)
== END 2023-12-25 23:59 | disposition home or self-care (01) ==
LOC: RAD 07:28
PROVIDERS: PCP Family Medicine; Visit Provider Physician Assistant
DX: N28.89 Other specified disorders of kidney and ureter (principal)
CPT/HCPCS: 36415; 74170; 82565; 84520; Q9967

== ENCOUNTER 2024-04-05 13:06 | Outpatient (CLI) | payer MEDICARE, SELFPAY ==
--- NOTE | 2024-04-05 13:09 | XR_ITS ---
FINAL REPORT CLINICAL HISTORY: Rt Hip Pain WORSE WHEN LYING DOWN, WORSENING LAST COUPLE WEEKS COMPARISON: 01/09/2022 FINDINGS: Right hip Three views were obtained. There is no acute fracture or dislocation. There are mild degenerative changes of both hips and in the lower lumbar spine. No soft tissue abnormality is identified. IMPRESSION: Mild degenerative changes as above. Reviewed, Interpreted and Dictated by Juan Jose Toscano III, MD Transcribed by Mary Meneses Authenticated and [facility]
== END 2024-04-05 23:59 | disposition home or self-care (01) ==
LOC: RAD 13:08
PROVIDERS: PCP Family Medicine; Visit Provider Physician Assistant
DX: M25.551 Pain in right hip (principal)
CPT/HCPCS: 73502

== ENCOUNTER 2024-12-28 10:02 | Outpatient (CLI) | payer MEDICARE, SELFPAY ==
--- OUTSIDE RECORDS SUMMARY | 2024-12-28 10:05 | XMS_ITS | Clinical Summary ---
Author Organization [facility] , [facility] Address [address] [place] [address] Phone Care Team Providers Care Marine Electrician Name Role Phone Symone RICHARDSON, Ryley Cervantes Unavailable [phone] Clau Westfall APRN Unavailable [phone] Reason for Visit and Chief Complaint The Chief Complaint is: low back pain Problems Includes: Problems addressed during this encounter and other active Problems Current Visit Onset Date Resolved Date Provider Florin britton Status Lower Back Pain 05/13/2024 Chas clemons PA-C Active Last Documented On 4 10:51AM ; [facility] Plan of Treatment - Patient screened for future fall risk: documentation of any fall with injury in past year - Last Documented On 07/12/2024 10:56AM ; [facility] Patient was seen by myself and Dr. Khoi Anthony PA-C. Patient will follow up post surgery patient does not want to try an injection with this. Plan will be for right minimally invasive L4-L5 decompression. He understands all benefits risks and alternatives surgery and consents to proceed - Last Documented On 07/12/2024 10:56AM ; [facility] Fall Risk Assessment: This patient has been identified as a fall risk. Balance/gait along with postural blood pressure, vision and home fall hazards have been assessed. Medications have been reviewed, and recommendations made with regard to contributing factors for future falls. Plan of care: Consideration of vitamin D supplementation along with balance and strength training with consideration for formal physical therapy has been discussed with the patient. - Last Documented On 07/12/2024 10:56AM ; [facility] Instructions to patient Lose weight Last Documented On 12:50PM ; [facility] Assessments Includes: Assessments from this encounter Findings - Overweight - Last Documented On 07/12/2024 10:56AM ; [facility], [facility] Right L4-L5 disc herniation - Last Documented On 07/12/2024 10:56AM ; [facility], [facility] Instructions Includes: Instructions from this encounter Instructions to patient Lose weight Last Documented On 4 12:50PM ; [facility], [facility] Medical Equipment - Implanted Devices Includes: Current Devices No Medical Equipment Recorded Medications Includes: Medications discussed during this encounter and other current Medications Discontinued / Stopped on this date on 02/29/2024 Meloxicam 15 MG Oral Tablet Provider: Diagnosis: Last Documented On 4 12:46PM By Amy Galvez ; [facility], [facility] Current Medications (continue as prescribed) Eplerenone 25 MG Oral Tablet 08/07/2024 Provider: Diagnosis: Last Documented On 5 8:08AM By Romeo Estes ; [facility], [facility] oxyCODONE-Acetaminophen 5-325 MG Oral Tablet Provider: Ori Westfall MD Diagnosis: Last Documented On 5 8:08AM By Romeo Estes ; [facility], [facility] Amlodipine 10 mg Oral Tablet 06/09/2024 Provider: Diagnosis: Last Documented On 4 12:45PM By Amy Galvez ; [facility], [facility] Aspirin Low Dose 81 MG Oral Tablet Chewable 06/09/2024 Provider: Diagnosis: Last Documented On 4 12:46PM By Amy Galvez ; [facility], [facility] Meloxicam 15 MG Oral Tablet 05/26/2024 Provider: Diagnosis: Last Documented On 4 12:44PM By Amy Galvez ; [facility], [facility] Carvedilol 25 MG Oral Tablet 05/10/2024 Provider: Diagnosis: Last Documented On 4 10:52AM By Bren Blankenship ; [facility], [facility] Eplerenone 25 MG Oral Tablet 05/09/2024 Provider: Diagnosis: Last Documented On 4 10:52AM By Bren Blankenship ; [facility], [facility] Potassium Chloride Shira ER 10 MEQ Oral Tablet Ex tended Release 04/15/2024 Provider: Diagnosis: Last Documented On 4 12:44PM By Amy Galvez ; [facility], [facility] Atorvastatin Calcium 20 MG Oral Tablet 04/05/2024 Pr ovider: Diagnosis: Last Documented On 4 12:44PM By Amy Galvez ; [facility], [facility] Omeprazole 40 MG Oral Capsule Delayed Release 03/15/20 Provider: Diagnosis: Last Documented On 4 10:52AM By Bren Blankenship ; [facility], [facility] cloNIDine HCl 0.1 MG Oral Tablet 01/27/2024 Provider : Diagnosis: Last Documented On 4 12:44PM By Amy Galvez ; [facility], [facility] Losartan Potassium 50 MG Oral Tablet 01/09/2024 Prov ider: Diagnosis: Last Documented On 4 10:52AM By Bren Blankenship ; [facility], [facility] Past Medications on file Percocet 5-325 MG Oral Tablet 07/20/2024 - 08/04/2024 Provider: Ori Westfall MD Diagnosis: 1 po q 4h prn pain Last Documented On 4 7:44AM By Ori Westfall ; [facility] Medications Administered Includes: Administered Medications from this encounter No Administered Medications Recorded Vital Signs Includes: Vital Signs from this encounter Vital Name 06/09/2024 01:00P Height (in) 73 Weight (lb) 263.4 Body Mass Index 34.8 Body Surface Area 2.4 Pain Level 6 Note: lc Last Documented: On 06/09/2024 1:00PM ; [facility], [facility] Results Includes: Results discussed during this encounter No Results Recorded For Specified Dates History of Present Illness Includes: History of Present Illness from this encounter OSCAR Ziegler is a 69 year old male. - Symptoms up walking makes the pain better lying in bed makes the pain worse. - Allergy list reviewed - Problem list reviewed - Medication list reviewed - Previous history of new onset pain Injury is not work related or an automotive accident - Patient pain level from 1-10: 6 - Yes, previous treatment. PCP - - Review of medications documented Patient is here today for follow-up of his lumbar spine MRI he has been dealing with this for years with right leg pain radiates down the right leg to the foot it is worse when he is sitting sometimes walking we will help this. Pain level 6/10. He denies any bowel or bladder issues with this. Anytime he is active it feels worse. No previous back surgery Social History Description Last Updated Caffeine use 05/13/2024 Last Documented On 4 12:46PM ; [facility], [facility] No recent change in diet 05/13/2024 Last Documented On 4 12:46PM ; [facility], [facility] Not exercising regularly 05/13/2024 Last Documented On 4 12:46PM ; [facility], [facility] Not using alcohol 05/13/2024 Last Documented On 4 12:46PM ; [facility], [facility] Not using drugs 05/13/2024 Last Documented On 4 12:46PM ; [facility] Yes, current smoker. 05/13/2024 Last Documented On 4 12:46PM ; [facility], [facility] Smoking Status Unknown Procedures and Surgical History Includes: Procedures from this encounter Procedures Code Diagnosis Performing Provider Service L ocation Service Date an MRI was performed 05/20/2024 [facility] MRI LSPINE [id number] Last Documented On 4 12:49PM ; [facility] Medical History Includes: Medical History addressed during this encounter Description Last Updated History of arthritis 05/13/2024 Last Documented On 4 12:46PM ; [facility], [facility] History of Hypertension 05/13/2024 Last Documented On 4 12:46PM ; [facility], [facility] History of Sleep Apnea 05/13/2024 Last Documented On 4 12:46PM ; [facility], [facility] Use of CPAP 05/13/2024 Last Documented On 4 12:46PM ; [facility], [facility] Family History Includes: Family History addressed during this encounter Description Last Updated No significant family history 05/13/2024 Last Documented On 4 12:46PM ; [facility], [facility] Review of Systems Includes: Review of Systems from this encounter Systemic: Not feeling tired, no recent weight loss, and no recent weight gain. Head: No headache and no sinus pain. Eyes: No vision problems and no Cataracts. Glasses/Contacts. No Glaucoma. Otolaryngeal: No hearing loss and no tinnitus. Cardiovascular: No chest pain or discomfort and no palpitations. Hypertension. No High Cholesterol. Pulmonary: No daytime asthma symptoms and no chronic cough. No wheezing. Gastrointestinal: No heartburn and no abdominal pain. No Indigestion, no Peptic Ulcer, no GI Stomach Bleed, no Ulcers, and no Acid Reflux. Endocrine: No hot flashes, no muscle weakness, no Diabetes, no Hypothyroid, and no Hyperthyroid. Hematologic: No easy bleeding, no tendency for easy bruising, and no Anemia. Musculoskeletal: Arthritis and lower back pain. No soft tissue swelling and no localized joint pain. Neurological: No dizziness, no convulsions, and no numbness. Psychological: No anxiety, no emotional lability, no depression, and no insomnia. Not crying for no reason. Skin: No dry skin. No Ulcers, no Scars, and no rash. Allergic and Immunologic: No complaint of seasonal allergic reaction. Mental Status Includes: Mental Status from this encounter Description No anxiety Functional Status Includes: Functional Status from this encounter No Functional Status Recorded Physical Exam Includes: Physical Exam from this encounter Allergies Includes: Active Allergies No Known Allergies Encounters Encounter Provider Location Date Check-In Time Check-Out Time Diagnosis Follow Up Ori Westfall MD [facility] 4 12:42PM 1:14PM Overweight Insurance Includes: Active Insurance Policies Plan Name Member ID Group # Subscriber Relationship Effect nitin Dates 1 - Medicare Part [facility] [id number] Chanel Ziegler Self 2 - [employer] MEDICARE [id number] Chanel Ziegler Self Clinical Notes Includes: Clinical Notes from this encounter * Progress note Date Encounter Last Documented by 06/09/2024 Follow Up Last documented on 07/12/2024; 10:56 AM, Ori Westfall MD; [facility] Active Problems & Conditions - Lower Back Pain Chief Complaint The Chief Complaint is: Low back pain. Referred Here Referred by Clau Westfall. History of Present Illness Chanel Ziegler is a 69 year old male. - Symptoms up walking makes the pain better lying in bed makes the pain worse. - Allergy list reviewed - Problem list reviewed - Medication list reviewed - Previous history of new onset pain Injury is not work related or an automotive accident - Patient pain level from 1-10: 6 - Yes, previous treatment. PCP - - Review of medications documented Patient is here today for follow-up of his lumbar spine MRI he has been dealing with this for years with right leg pain radiates down the right leg to the foot it is worse when he is sitting sometimes walking we will help this. Pain level 02/07. He denies any bowel or bladder issues with this. Anytime he is active it feels worse. No previous back surgery Current Medication - Amlodipine 10 mg Oral Tablet 10 mg take as directed 0 days, 0 refills - Aspirin Low Dose 81 MG Oral Tablet Chewable take as directed 0 days, 0 refills - Atorvastatin Calcium 20 MG Oral Tablet 90 days, 0 refills - Carvedilol 25 MG Oral Tablet 90 days, 0 refills - cloNIDine HCl 0.1 MG Oral Tablet 30 days, 0 refills - Eplerenone 25 MG Oral Tablet 90 days, 0 refills - Losartan Potassium 50 MG Oral Tablet 90 days, 0 refills - Meloxicam 15 MG Oral Tablet 90 days, 0 refills - Omeprazole 40 MG Oral Capsule Delayed Release 90 days, 0 refills - Potassium Chloride Shira ER 10 MEQ Oral Tablet Extended Release 90 days, 0 refills Past Medical/Surgical History Reported: Use of CPAP. Diagnoses: Sleep Apnea Hypertension. Arthritis Social History Yes, current smoker. Current diet: No recent change in diet. Caffeine use: Caffeine use. Alcohol: Not using alcohol. Drug Use: Not using drugs. Habits: Not exercising regularly. Allergies - No Known Allergies Family History No significant family history Review Of Systems Systemic: Not feeling tired, no recent weight loss, and no recent weight gain. Head: No headache and no sinus pain. Eyes: No vision problems and no Cataracts. Glasses/Contacts. No Glaucoma. Otolaryngeal: No hearing loss and no tinnitus. Cardiovascular: No chest pain or discomfort and no palpitations. Hypertension. No High Cholesterol. Pulmonary: No daytime asthma symptoms and no chronic cough. No wheezing. Gastrointestinal: No heartburn and no abdominal pain. No Indigestion, no Peptic Ulcer, no GI Stomach Bleed, no Ulcers, and no Acid Reflux. Endocrine: No hot flashes, no muscle weakness, no Diabetes, no Hypothyroid, and no Hyperthyroid. Hematologic: No easy bleeding, no tendency for easy bruising, and no Anemia. Musculoskeletal: Arthritis and lower back pain. No soft tissue swelling and no localized joint pain. Neurological: No dizziness, no convulsions, and no numbness. Psychological: No anxiety, no emotional lability, no depression, and no insomnia. Not crying for no reason. Skin: No dry skin. No Ulcers, no Scars, and no rash. Allergic and Immunologic: No complaint of seasonal allergic reaction. Physical Findings - Vitals taken 06/09/2024 01:00 pm lc Height 73 in Weight 263 lbs 6.4 oz Body Mass Index 34.8 kg/m2 Body Surface Area 2.4 m2 Pain Level 6 Pleasant alert and oriented x3 4+ out of 5 EHL and tibialis anterior on the right 5/5 on the left Negative straight leg raise bilaterally blunted Achilles and patellar reflexes bilaterally Tests MRI lumbar spine shows L4-L5 disc herniation on the right Assessment - Overweight Right L4-L5 disc herniation Previous Tests Imaging: MRI Scan: An MRI was performed 05/20/2024 [facility]. Available previous imaging studies were reviewed Available previous history reviewed Counseling/Education - Tobacco non-user - Use of tobacco assessment performed - Lose weight Plan - Patient screened for future fall risk: documentation of any fall with injury in past year Patient was seen by myself and Dr. Khoi Anthony PA-C. Patient will follow up post surgery patient does not want to try an injection with this. Plan will be for right minimally invasive L4-L5 decompression. He understands all benefits risks and alternatives surgery and consents to proceed Fall Risk Assessment: This patient has been identified as a fall risk. Balance/gait along with postural blood pressure, vision and home fall hazards have been assessed. Medications have been reviewed, and recommendations made with regard to contributing factors for future falls. Plan of care: Consideration of vitamin D supplementation along with balance and strength training with consideration for formal physical therapy has been discussed with the patient. Notes This dictation was done with voice recognition software and may contain errors and omissions. Care Team - Clau A Westfall, ANGIOGRAPHER Health Reminders - Assess BMI satisfied 06/09/2024. - Assess Tobacco Use satisfied 06/09/2024. - Follow Up Plan BMI Management satisfied 06/09/2024.
--- OUTSIDE RECORDS SUMMARY | 2024-12-28 10:05 | XMS_ITS ---
Author Organization [facility] , [facility] Address [address] [place] [address] Phone Care Team Providers Care Photograph Enlarger Name Role Phone Ryley Ashby MD Unavailable [phone] Clau Westfall APRN Unavailable [phone] Problems Includes: Active, inactive, and resolved Problems All Visits Onset Date Resolved Date Provider Condition S tatus Lower Back Pain 05/13/2024 Chas clemons PA-C Active Last Documented On 4 10:51AM ; [facility] Plan of Treatment Findings Encounter Date Patient screened for future fall risk: documentation of any fall with injury in past year Post Op with Ori Westfall MD 09/22/2024 Last Documented On 5 8:30AM ; [facility] Patient screened for future fall risk: documentation of any fall with injury in past year Post Op with Emir Anthony PA-C 08/03/2024 Last Documented On 4 9:13AM ; [facility] Patient screened for future fall risk: documentation of any fall with injury in past year Follow Up with Ori Westfall MD 06/09/2024 Last Documented On 4 10:56AM ; [facility] Patient screened for future fall risk: documentation of any fall with injury in past year Physician Specified with Chas Haynes PA-C 05/13/2024 Last Documented On 4 12:02PM ; [facility] Pending Tests Order Diagnosis Results Due Ordering P rovider Radiology - MRI MRI Lumbar Spine Low back pain, unspecified 05/27/24 Chas Haynes PA-C Last Documented On 4 12:02PM ; [facility], [facility] Instructions to patient Lose weight Last Documented On 5 8:08AM ; [facility] Lose weight Last Documented On 4 8:57AM ; [facility] Lose weight Last Documented On 4 12:50PM ; [facility] Lose weight Last Documented On 4 10:56AM ; [facility] Assessments Includes: Assessments for all patient encounters Findings Encounter Date Overweight Post Op with Ori Westfall MD Last Documented On 5 8:30AM ; [facility] Overweight Post Op with Emir Anthony PA-C 08/03/2024 Last Documented On 4 9:13AM ; [facility] Overweight Follow Up with Ori Westfall MD 06/09/2024 Last Documented On 4 10:56AM ; [facility], [facility] Overweight Physician Specified with Lester Haynes PA-C 05/13/2024 Last Documented On 4 12:02PM ; [facility], [facility] Instructions Includes: Instructions for all patient encounters Instructions to patient Lose weight Last Documented On 5 8:08AM ; [facility] Lose weight Last Documented On 4 8:57AM ; [facility] Lose weight Last Documented On 4 12:50PM ; [facility] Lose weight Last Documented On 4 10:56AM ; [facility], [facility] Medical Equipment - Implanted Devices Includes: Current and historical Devices No Medical Equipment Recorded Medications Includes: Current and historical Medications Current Medications (continue as prescribed) Eplerenone 25 MG Oral Tablet 08/07/2024 Provider: Diagnosis: Last Documented On 5 8:08AM By Romeo Estes ; [facility], [facility] oxyCODONE-Acetaminophen 5-325 MG Oral Tablet 4 Provider: Ori Westfall MD Diagnosis: Last Documented On 5 8:08AM By Romeo Estes ; [facility], [facility] Amlodipine 10 mg Oral Tablet 06/09/2024 Provider: Diagnosis: Last Documented On 4 12:45PM By Amy Galvez ; [facility], [facility] Aspirin Low Dose 81 MG Oral Tablet Chewable 06/09/2024 Provider: Diagnosis: Last Documented On 4 12:46PM By Amy Galvez ; [facility] Meloxicam 15 MG Oral Tablet 05/26/2024 Provider: Diagnosis: Last Documented On 4 12:44PM By Amy Galvez ; [facility] Carvedilol 25 MG Oral Tablet 05/10/2024 Provider: Diagnosis: Last Documented On 4 10:52AM By Bren Blankenship ; [facility] Eplerenone 25 MG Oral Tablet 05/09/2024 Provider: Diagnosis: Last Documented On 4 10:52AM By Bren Blankenship ; [facility] Potassium Chloride Shira ER 10 MEQ Oral Tablet Ex tended Release 04/15/2024 Provider: Diagnosis: Last Documented On 4 12:44PM By Amy Galvez ; [facility], [facility] Atorvastatin Calcium 20 MG Oral Tablet 04/05/2024 Pr ovider: Diagnosis: Last Documented On 4 12:44PM By Amy Galvez ; [facility], [facility] Omeprazole 40 MG Oral Capsule Delayed Release 03/15/20 24 Provider: Diagnosis: Last Documented On 4 10:52AM By Bren Blankenship ; [facility], [facility] cloNIDine HCl 0.1 MG Oral Tablet 01/27/2024 Provider : Diagnosis: Last Documented On 4 12:44PM By Amy Galvez ; [facility], [facility] Losartan Potassium 50 MG Oral Tablet 01/09/2024 Prov ider: Diagnosis: Last Documented On 4 10:52AM By Bren Blankenship ; [facility], [facility] Past Medications on file Percocet 5-325 MG Oral Tablet 07/20/2024 - 08/04/2024 Provider: Ori Westfall MD Diagnosis: 1 po q 4h prn pain Last Documented On 4 7:44AM By Ori Westfall ; [facility] Meloxicam 15 MG Oral Tablet 02/29/2024 - 06/09/2024 Pr ovider: Diagnosis: Last Documented On 12:46PM By Amy Galvez ; [facility] Medications Administered Includes: Administered Medications in patient's chart No Administered Medications Recorded Vital Signs Includes: Vital Signs from 12/29/2023 through 12/28/2024 Vital Name 09/22/2024 08:25A 06/09/2024 01:00P 05/13 10:52A Height (in) 73 73 Weight (lb) 260 263.4 252 Body Mass Index 34.3 34.8 Body Surface Area 2.4 2.4 Pain Level 0 6 Note: em Last Documented: On 09/22/2024 8:25AM ; [facility] On 06/09/2024 1:00PM ; [facility] On 05/13/2024 10:53AM ; [facility] Results Includes: Results from 12/29/2023 through 12/28/2024 No Results Recorded For Specified Dates History of Present Illness History of Present Illness not supported for this document type No History of Present Illness Recorded Social History Description Last Updated Caffeine use 05/13/2024 Last Documented On 4 12:02PM ; [facility] No recent change in diet 05/13/2024 Last Documented On 4 12:02PM ; [facility] Not exercising regularly 05/13/2024 Last Documented On 4 12:02PM ; [facility] Not using alcohol 05/13/2024 Last Documented On 4 12:02PM ; [facility] Not using drugs 05/13/2024 Last Documented On 4 12:02PM ; [facility] Yes, current smoker. 05/13/2024 Last Documented On 4 12:02PM ; [facility] Smoking Status Unknown Procedures and Surgical History Includes: Procedures from 12/29/2023 through 12/28/2024 Procedures Code Diagnosis Performing Provider Service Location Service Date Injection, betamethasone acetate 6mg per cc and betamethason J0702 Pain in right knee Ori Westfall MD [facility] 09/22/2024 Last Documented On 5 9:54AM ; [facility] DRAIN/INJECT, JOINT/BURSA (RIGHT) 42120 Pain in right knee Ori Westfall MD [facility] 09/22/2024 Last Documented On 5 9:54AM ; [facility] LAMINOTOMY,(TONY)DECOMP ONE INTERSPCE LUMBAR (RIGHT) 90041 Other intervertebral disc displacement, lumbar region Ori Westfall MD [facility] 07/20/2024 Last Documented On 4 2:10PM ; [facility] MRI LUMBAR SPINE W/O DYE 91959 Low back pain, unspecified Ori Westfall MD [facility] 05/20/2024 Last Documented On 4 3:11PM ; [facility] X-RAY EXAM OF LOWER SPINE 2-3 VIEWS LIMITED 34358 Other spondylosis with radiculopathy, lumbar region Chas Haynes PA-C [facility] 05/13/2024 Last Documented On 4 2:17PM ; [facility] Medical History Includes: Medical History in patient's chart Description Last Updated History of arthritis 05/13/2024 Last Documented On 4 12:02PM ; [facility] History of Hypertension 05/13/2024 Last Documented On 4 12:02PM ; [facility] History of Sleep Apnea 05/13/2024 Last Documented On 4 12:02PM ; [facility] Use of CPAP 05/13/2024 Last Documented On 4 12:02PM ; [facility] Family History Includes: Family History in patient's chart Description Last Updated No significant family history 05/13/2024 Last Documented On 4 12:02PM ; [facility] Review of Systems Review of Systems not supported for this document type No Review of Systems Recorded Mental Status Description No anxiety Functional Status No Functional Status Recorded Physical Exam Physical Exam not supported for this document type No Physical Exam Recorded Allergies Includes: Active, inactive, and resolved Allergies No Known Allergies Encounters Includes: Encounters from 12/29/2023 through 12/28/2024 Encounter Provider Location Date Check-In Time Check-Out Time Diagnosis Post Op Ori Westfall MD [facility] 025 8:09AM 8:44AM Overweight Post Op Emir Anthony PA-C [facility] 024 8:54AM 9:16AM Overweight [facility] Ori Westfall MD Surgery 07/26/2024 5:12PM 06/09/2024 11:59PM [Patient Encounter] Ori Westfall MD 06/09/2024 7:28AM 06/09/2024 11:59PM Follow Up Ori Westfall MD [facility] 12:42PM 1:14PM Overweight MRI [facility] 3:25PM 05/13/2024 11:59PM Physician Specified Chas Haynes PA-C [facility] 10:05AM 11:40AM Overweight Insurance Includes: Active Insurance Policies Plan Name Member ID Group # Subscriber Relationship Effect nitin Dates 1 - Medicare Part B [facility] [id number] Chanel Ziegler Self 2 - [employer] MEDICARE [id number] Chanel Ziegler Self Clinical Notes Includes: Signed Clinical Notes starting from 08/14/2022 * Progress note Date Encounter Last Documented by 08/03/2024 Post Op Last documented on 08/03/2024; 9:13 AM, Emir Anthony PA-C; [facility] Active Problems & Conditions - Lower Back Pain Chief Complaint The Chief Complaint is: Low back pain. Referred Here Referred by Clau Westfall. History of Present Illness Chanel Ziegler is a 69 year old male. - Allergy list reviewed - Problem list reviewed - Medication list reviewed - - Review of medications documented Follow up on his right L4-L5 microdiskectomy surgery date was 07/20/2024 he said he is doing well has not had any pain with this at all. Overall his right leg is doing much better Current Medication - Amlodipine 10 mg Oral [...] Delayed Release 90 days, 0 refills - Percocet 5-325 MG Oral Tablet 1 po q 4h prn pain, 15 days, 0 refills - Potassium Chloride Shira [...] complaint of seasonal allergic reaction. Physical Findings He does have some ecchymosis with his back but the incision does look clean dry intact no sign of any infection no drainage Walking with a normal gait Assessment - Overweight Right L4-L5 microdiskectomy July 20, 2024 Previous Tests Imaging: MRI Scan: An MRI was performed 05/20/2024 [facility] MRI LSPINE. Available previous imaging studies were reviewed Available previous history reviewed Counseling/Education - Tobacco non-user - Use of tobacco assessment performed - Lose weight Plan - Patient screened for future fall risk: documentation of any fall with injury in past year Fall Risk Assessment: This patient has been [...] therapy has been discussed with the patient. Patient was seen by myself Emir Anthony PA-C. Patient will follow up [address] Westfall we will get his leta out today he is to walk the do any bending lifting or twisting Notes This dictation was done with voice recognition software and may contain errors and omissions. Care Team - Clau Westfall APRN Health Reminders - Assess Tobacco Use satisfied 08/03/2024. - Follow Up Plan BMI Management satisfied 08/03/2024. * Progress note Date Encounter Last Documented by 06/09/2024 Follow Up Last documented on 07/12/2024; 10:56 AM, Ori Westfall MD; [facility], [facility] Active Problems & Conditions - Lower Back [...] MRI Scan: An MRI was performed 05/20/2024 [facility] MRI [facility]. Available previous imaging studies were reviewed [...] errors and omissions. Care Team - Clau Westfall APRN Health Reminders - Assess BMI satisfied 06/09/2024. - Assess Tobacco Use satisfied 06/09/2024. - Follow Up Plan BMI Management satisfied 06/09/2024. * Progress note Date Encounter Last Documented by 05/13/2024 Physician Specified Last jitendra ugarte on 05/13/2024; 12:02 PM, Chas Haynes PA-C; [facility], [facility] Active Problems & Conditions - Lower Back Pain Chief Complaint The Chief Complaint is: Low back pain into R hip. Referred Here Referred by. History of Present Illness Chanel Ziegler is a 69 year old male. - Allergy list reviewed - Problem list reviewed - Medication list reviewed - Previous history of new onset pain Injury is not work related or an automotive accident - Sharp pain Symptoms - Pain is constant (100% of the time) - Patient pain level from 1-10: 4 - No previous treatment. - - Review of medications documented 69-year-old gentleman chief complaint of low back pain that radiates into his right hip. Said goes into his buttock and goes all the way down the back of his leg into the bottom in his foot. He has been going on for several years. He takes Mobic daily. He said it thought it was his knee he ended up having a meniscal surgery but it did not help. He said he is tired of dealing with this and he wants to know if he can get it fixed. Denies any left leg symptoms. He denies any specific fall or injury. Current Medication - Carvedilol 25 MG Oral Tablet 90 days, 0 refills - Eplerenone 25 MG Oral Tablet 90 days, 0 refills - Losartan Potassium 50 MG Oral Tablet 90 days, 0 refills - Omeprazole 40 MG Oral Capsule Delayed Release 90 days, 0 refills Past Medical/Surgical [...] loss, and no recent weight gain. Head: Headache. No sinus pain. Eyes: No vision problems and no Cataracts. Glasses/Contacts. No Glaucoma. Otolaryngeal: No hearing loss and no tinnitus. Cardiovascular: No chest pain or discomfort and no palpitations. Hypertension and High Cholesterol. Pulmonary: No daytime asthma symptoms [...] and lower back pain. No soft tissue swelling. Pain localized to one or more joints. Neurological: Dizziness. No convulsions and no numbness. Psychological: No anxiety, no emotional lability, no depression, and no insomnia. Not crying for no reason. Skin: No dry skin. No Ulcers, no Scars, and no rash. Allergic and Immunologic: No complaint of seasonal allergic reaction. Physical Findings - Vitals taken 05/13/2024 10:52 am em Weight 252 lbs Pleasant, alert and oriented x3 Patient walks with a normal gait and no assistive device No acute distress. Non-labored respirations Normal affect, appropriate mood. Extraocular motor movements intact. Normal hearing Patient is nontender to palpation lower lumbar spine. No bruising. Positive straight leg raise test on the right 5 out of 5 strength in bilateral EHL, tibialis anterior, and gastrocnemius. Good skin turgor lower extremities. He has a slight diminished right Achilles compared to the left Tests Two-view lumbar x-rays demonstrate diffuse lumbar spondylosis with disc space narrowing and facet hypertrophy from L3-S1. No subluxation. No fracture. Assessment - Overweight Lumbar spondylosis and low back pain right leg radiculopathy Plan: Said he is not really interested in injections. He said he has started doing in his he would like to get this fixed if there is possible surgery. He has been doing this for years he has positive nerve tension signs of the right. We are going to get a lumbar MRI and have him follow up with Dr. Westfall he is in agreement with the treatment plan. Patient was seen by myself. Dictation by Chas Haynes PA-C Previous Tests Imaging: X-Ray: An X-ray was performed. Counseling/Education - Tobacco use - Use of tobacco assessment performed - Lose weight Plan StartCited - Low back pain, unspecified Radiology/MRI: MRI Lumbar Spine EndCited - Patient screened for future fall risk: documentation of any fall with injury in past year Fall Risk Assessment: This patient has been [...] contain errors and omissions. Care Team - PCP NO
--- OUTSIDE RECORDS SUMMARY | 2024-12-28 10:05 | XMS_ITS ---
Care Plan - [facility], [facility] Created on: December 28, 2024 Chanel Ziegler : 1955 Sex: Male Author Organization [facility] , [facility] Address [address] [place] [address] Phone Care Team Providers Care Occ Med Physician Name Role Phone Symone RICHARDSON, Ryley Cervantes Unavailable [phone] Clau Westfall APRN Unavailable [phone]
--- OUTSIDE RECORDS SUMMARY | 2024-12-28 10:05 | XMS_ITS | Clinical Summary ---
Author Organization [facility] , [facility] Address [address] [place] [address] Phone Care Team Providers Care Manager Family Name Role Phone Symone RICHARDSON, Ryley Cervantes Unavailable [phone] Clau Westfall APRN Unavailable [phone] Reason for Visit and Chief Complaint [facility] Problems Includes: Problems addressed during this encounter and other active Problems All Visits Onset Date Resolved Date Provider Condition S tatus Lower Back Pain 05/13/2024 Chas clemons PA-C Active Last Documented On 4 10:51AM ; [facility], [facility] Plan of Treatment No Plan of Treatment Recorded Assessments Includes: Assessments from this encounter No Assessments Recorded Medical Equipment - Implanted Devices Includes: Current Devices No Medical Equipment Recorded Medications Includes: Medications discussed during this encounter and other current Medications Current Medications (continue as prescribed) Eplerenone 25 MG Oral Tablet 08/07/2024 Provider: Diagnosis: Last Documented On 5 8:08AM By Romeo Estes ; [facility], [facility] oxyCODONE-Acetaminophen 5-325 MG Oral Tablet Provider: Ori Westfall MD Diagnosis: Last Documented On 5 8:08AM By Romeo Estes ; [facility], [facility] Amlodipine 10 mg Oral Tablet 06/09/2024 Provider: Diagnosis: Last Documented On 4 12:45PM By Amy Galvez ; [facility], [facility] Aspirin Low Dose 81 MG Oral Tablet Chewable 06/09/2024 Provider: Diagnosis: Last Documented On 4 12:46PM By Amy Galvez ; [facility], [facility] Meloxicam 15 MG Oral Tablet 05/26/2024 Provider: Diagnosis: Last Documented On 4 12:44PM By Amy Galvez ; [facility], [facility] Carvedilol 25 MG Oral Tablet 05/10/2024 Provider: Diagnosis: Last Documented On 4 10:52AM By Bren Blankenship ; [facility], [facility] Eplerenone 25 MG Oral Tablet 05/09/2024 Provider: Diagnosis: Last Documented On 4 10:52AM By Bren Blankenship ; [facility], [facility] Potassium Chloride Shira ER 10 MEQ Oral Tablet Ex tended Release 04/15/2024 Provider: Diagnosis: Last Documented On 4 12:44PM By Amy Galvez ; [facility], [facility] Atorvastatin Calcium 20 MG Oral Tablet 04/05/2024 Pr ovider: Diagnosis: Last Documented On 4 12:44PM By Amy Galvez ; [facility], [facility] Omeprazole 40 MG Oral Capsule Delayed Release 03/15/20 Provider: Diagnosis: Last Documented On 4 10:52AM By Bren Blankenship ; [facility], [facility] cloNIDine HCl 0.1 MG Oral Tablet 01/27/2024 Provider : Diagnosis: Last Documented On 4 12:44PM By Amy Galvez ; [facility], [facility] Losartan Potassium 50 MG Oral Tablet 01/09/2024 Prov ider: Diagnosis: Last Documented On 4 10:52AM By Bren Blankenship ; [facility], [facility] Medications Administered Includes: Administered Medications from this encounter No Administered Medications Recorded Results Includes: Results discussed during this encounter No Results Recorded For Specified Dates History of Present Illness Includes: History of Present Illness from this encounter No History of Present Illness Recorded Social History No Social History Recorded - Smoking Status Unknown Procedures and Surgical History Includes: Procedures from this encounter Procedures Code Diagnosis Performing Provider Service Location Service Date LAMINOTOMY,(TONY )DECOMP ONE INTERSPCE LUMBAR (RIGHT) 78591 Other intervertebral disc displacement, lumbar region Ori Westfall MD [facility] 07/20/2024 Last Documented On 4 2:10PM ; [facility], [facility] Medical History Includes: Medical History addressed during this encounter No Medical History Recorded Family History Includes: Family History addressed during this encounter No Family History Recorded Review of Systems Includes: Review of Systems from this encounter No Review of Systems Recorded Mental Status Includes: Mental Status from this encounter No Mental Status Recorded Functional Status Includes: Functional Status from this encounter No Functional Status Recorded Physical Exam Includes: Physical Exam from this encounter No Physical Exam Recorded Allergies Includes: Active Allergies No Known Allergies Encounters Encounter Provider Location Date Check-In Time Check-Out Time Diagnosis [facility] Ori Westfall MD Surgery 4 07/26/2024 5:12PM 11:59PM Insurance Includes: Active Insurance Policies Plan Name Member ID Group # Subscriber Relationship Effect nitin Dates 1 - Medicare Part B [facility] [id number] Chanel Dawson 2 - [employer] MEDICARE [id number] Chanel Dawson Clinical Notes Includes: Clinical Notes from this encounter No Clinical Notes Recorded
--- OUTSIDE RECORDS SUMMARY | 2024-12-28 10:05 | XMS_ITS | Clinical Summary ---
Author Organization [facility] , [facility] Address [address] [place] [address] Phone Care Team Providers Care Jig Grinder Set Up Operator Name Role Phone Symone RICHARDSON, Ryley Cervantes Unavailable [phone] Clau Westfall APRN Unavailable [phone] Reason for Visit and Chief Complaint The Chief Complaint is: low back pain Problems Includes: Problems addressed during this encounter and other active Problems Current Visit Onset Date Resolved Date Provider Florin britton Status Lower Back Pain 05/13/2024 Chas clemons PA-C Active Last Documented On 10:51AM ; [facility] Plan of Treatment - Patient screened for future fall risk: documentation of any fall with injury in past year - Last Documented On 09/22/2024 8:30AM ; [facility] Fall Risk Assessment: This patient has [...] with the patient. - Last Documented On 09/22/2024 8:30AM ; [facility] Patient was seen by myself and Dr. Khoi Anthony PA-C. Patient will follow up as needed. Patient was given a cortisone injection for the right knee under sterile technique 4 cc of lidocaine Marcaine 2 cc betamethasone. He tolerated it well if this does not help he has a let us know we will get an x-ray of his knee and then either consider referring him to 1 of the other joint replacement surgeon to her other injections like Hyalgan injections - Last Documented On 09/22/2024 8:30AM ; [facility], [facility] Instructions to patient Lose weight Last Documented On 5 8:08AM ; [facility], [facility] Assessments Includes: Assessments from this encounter Findings - Overweight - Last Documented On 09/22/2024 8:30AM ; [facility] Right knee pain likely arthritis - Last Documented On 09/22/2024 8:30AM ; [facility] Status post L4-L5 microdiskectomy July 15, 2024 - Last Documented On 09/22/2024 8:30AM ; [facility], [facility] Instructions Includes: Instructions from this encounter Instructions to patient Lose weight Last Documented On 5 8:08AM ; [facility], [facility] Medical Equipment - Implanted Devices Includes: Current Devices No Medical Equipment Recorded Medications Includes: Medications discussed during this encounter and other current Medications Current Medications (continue as prescribed) Eplerenone 25 MG Oral Tablet 08/07/2024 Provider: Diagnosis: Last Documented On 5 8:08AM By Romeo Estes ; [facility], [facility] oxyCODONE-Acetaminophen 5-325 MG Oral Tablet Provider: Ori Westfall MD Diagnosis: Last Documented On 5 8:08AM By Romeo Estes ; [facility], [facility] Amlodipine 10 mg Oral Tablet 06/09/2024 Provider: Diagnosis: Last Documented On 4 12:45PM By Amy Galvez ; [facility], [facility] Aspirin Low Dose 81 MG Oral Tablet Chewable 06/09/2024 Provider: Diagnosis: Last Documented On 4 12:46PM By Amy Galvez ; [facility], [facility] Meloxicam 15 MG Oral Tablet 05/26/2024 Provider: Diagnosis: Last Documented On 4 12:44PM By Amy Galvez ; [facility], [facility] Carvedilol 25 MG Oral Tablet 05/10/2024 Provider: Diagnosis: Last Documented On 4 10:52AM By Bren Blankenship ; [facility], [facility] Eplerenone 25 MG Oral Tablet 05/09/2024 Provider: Diagnosis: Last Documented On 4 10:52AM By Bren Blankenship ; [facility], [facility] Potassium Chloride Shira ER 10 MEQ Oral Tablet Ex tended Release 04/15/2024 Provider: Diagnosis: Last Documented On 4 12:44PM By Amy Galvez ; [facility], [facility] Atorvastatin Calcium 20 MG Oral Tablet 04/05/2024 Pr ovider: Diagnosis: Last Documented On 4 12:44PM By Amy Galvez ; [facility], [facility] Omeprazole 40 MG Oral Capsule Delayed Release 03/15/20 24 Provider: Diagnosis: Last Documented On 4 10:52AM By Bren Blankenship ; [facility] cloNIDine HCl 0.1 MG Oral Tablet 01/27/2024 Provider : Diagnosis: Last Documented On 4 12:44PM By Amy Galvez ; [facility] Losartan Potassium 50 MG Oral Tablet 01/09/2024 Prov ider: Diagnosis: Last Documented On 4 10:52AM By Bren Blankenship ; [facility] Past Medications on file Percocet 5-325 MG Oral Tablet 07/20/2024 - 08/04/2024 Provider: Ori Westfall MD Diagnosis: 1 po q 4h prn pain Last Documented On 4 7:44AM By Ori Westfall ; [facility] Medications Administered Includes: Administered Medications from this encounter No Administered Medications Recorded Vital Signs Includes: Vital Signs from this encounter Vital Name 09/22/2024 08:25A Height (in) 73 Weight (lb) 260 Body Mass Index 34.3 Body Surface Area 2.4 Pain Level 0 Last Documented: On 09/22/2024 8:25AM ; [facility] Results Includes: Results discussed during this encounter No Results Recorded For Specified Dates History of Present Illness Includes: History of Present Illness from this encounter OSCAR Ziegler is a 69 year old male. - Allergy list reviewed - Problem list reviewed - Medication list reviewed - - Review of medications documented Follow up on his right L4-L5 microdiskectomy from July 20, 2024 doing well no pain. Secondary complaint of right knee pain he has had a previous right knee scope years ago to the right knee Social History Description Last Updated Caffeine use 05/13/2024 Last Documented On 5 8:08AM ; [facility] No recent change in diet 05/13/2024 Last Documented On 5 8:08AM ; [facility] Not exercising regularly 05/13/2024 Last Documented On 5 8:08AM ; [facility] Not using alcohol 05/13/2024 Last Documented On 5 8:08AM ; [facility] Not using drugs 05/13/2024 Last Documented On 5 8:08AM ; [facility] Yes, current smoker. 05/13/2024 Last Documented On 5 8:08AM ; [facility] Smoking Status Unknown Procedures and Surgical History Includes: Procedures from this encounter Procedures Code Diagnosis Performing Provider Service Location Service Date DRAIN/INJECT, JOINT/BURSA (RIGHT) Pain in right knee Ori Westfall MD [facility] 09/22/2024 Last Documented On 5 9:54AM ; [facility] Injection, betamethasone acetate 6mg per cc and betamethason [id number] Pain in right knee Ori Westfall MD [facility] 09/22/2024 Last Documented On 5 9:54AM ; [facility] an MRI was performed 05/20/2024 [facility] MRI LSPINE 7 [id number] Last Documented On 5 8:08AM ; [facility] Medical History Includes: Medical History addressed during this encounter Description Last Updated History of arthritis 05/13/2024 Last Documented On 5 8:08AM ; [facility] History of Hypertension 05/13/2024 Last Documented On 5 8:08AM ; [facility] History of Sleep Apnea 05/13/2024 Last Documented On 5 8:08AM ; [facility] Use of CPAP 05/13/2024 Last Documented On 5 8:08AM ; [facility] Family History Includes: Family History addressed during this encounter Description Last Updated No significant family history 05/13/2024 Last Documented On 5 8:08AM ; [facility], [facility] Review of Systems Includes: Review of Systems [...] Time Diagnosis Post Op Ori Westfall MD [facility] 5 8:09AM 8:44AM Overweight Insurance Includes: Active Insurance Policies Plan Name Member ID Group # Subscriber Relationship Effect nitin Dates 1 - Medicare Part B [facility] [id number] Chanel Ziegler Self 2 - [employer] MEDICARE [id number] Chanel Dawson Clinical Notes Includes: Clinical Notes from this encounter No Clinical Notes Recorded
--- OUTSIDE RECORDS SUMMARY | 2024-12-28 10:05 | XMS_ITS | Clinical Summary ---
Author Organization [facility] , [facility] Address [address] [place] [address] Phone Care Team Providers Care Rehab Technician Name Role Phone Symone RICHARDSON, Ryley Cervantes Unavailable [phone] Clau Westfall APRN Unavailable [phone] Reason for Visit and Chief Complaint The Chief Complaint is: low back pain Problems Includes: Problems addressed during this encounter and other active Problems Current Visit Onset Date Resolved Date Provider Florin britton Status Lower Back Pain 05/13/2024 Chas clemons PA-C Active Last Documented On 4 10:51AM ; [facility] Plan of Treatment - Patient screened for future fall risk: documentation of any fall with injury in past year - Last Documented On 08/03/2024 9:13AM ; [facility] Fall Risk Assessment: This patient has been [...] with the patient. - Last Documented On 08/03/2024 9:13AM ; [facility] Patient was seen by myself Emir Anthony PA-C. Patient will follow up [address] Westfall we will get his leta out today he is to walk the do any bending lifting or twisting - Last Documented On 08/03/2024 9:13AM ; [facility] Instructions to patient Lose weight Last Documented On 4 8:57AM ; [facility] Assessments Includes: Assessments from this encounter Findings - Overweight - Last Documented On 08/03/2024 9:13AM ; [facility], [facility] Right L4-L5 microdiskectomy July 20, 2024 - Last Documented On 08/03/2024 9:13AM ; [facility], [facility] Instructions Includes: Instructions from this encounter Instructions to patient Lose weight Last Documented On 4 8:57AM ; [facility], [facility] Medical Equipment - Implanted Devices Includes: Current Devices No Medical Equipment Recorded Medications Includes: Medications discussed during this encounter and other current Medications Current Medications (continue as prescribed) Eplerenone 25 MG Oral Tablet 08/07/2024 Provider: Diagnosis: Last Documented On 5 8:08AM By Romeo Estes ; [facility], [facility] oxyCODONE-Acetaminophen 5-325 MG Oral Tablet Provider: Ori Westfall MD Diagnosis: Last Documented On 5 8:08AM By Romeo Estes ; [facility], [facility] Amlodipine 10 mg Oral Tablet 06/09/2024 Provider: Diagnosis: Last Documented On 4 12:45PM By Amy Galvez ; [facility], [facility] Aspirin Low Dose 81 MG Oral Tablet Chewable 06/09/2024 Provider: Diagnosis: Last Documented On 4 12:46PM By Amy Galvez ; [facility], [facility] Meloxicam 15 MG Oral Tablet 05/26/2024 Provider: Diagnosis: Last Documented On 4 12:44PM By Amy Galvez ; [facility], [facility] Carvedilol 25 MG Oral Tablet 05/10/2024 Provider: Diagnosis: Last Documented On 4 10:52AM By Bren Blankenship ; [facility], [facility] Eplerenone 25 MG Oral Tablet 05/09/2024 Provider: Diagnosis: Last Documented On 4 10:52AM By Bren Blankenship ; [facility], [facility] Potassium Chloride Shira ER 10 MEQ Oral Tablet Ex tended Release 04/15/2024 Provider: Diagnosis: Last Documented On 4 12:44PM By Amy Galvez ; [facility], [facility] Atorvastatin Calcium 20 MG Oral Tablet 04/05/2024 Pr ovider: Diagnosis: Last Documented On 4 12:44PM By Amy Galvez ; [facility] Omeprazole 40 MG Oral Capsule Delayed Release 03/15/20 Provider: Diagnosis: Last Documented On 4 10:52AM By Bren Blankenship ; [facility] cloNIDine HCl 0.1 MG Oral Tablet 01/27/2024 Provider : Diagnosis: Last Documented On 4 12:44PM By Amy Galvez ; [facility] Losartan Potassium 50 MG Oral Tablet 01/09/2024 Prov ider: Diagnosis: Last Documented On 4 10:52AM By Bren Blankenship ; [facility] Past Medications on file Percocet 5-325 MG Oral Tablet 07/20/2024 - 08/04/2024 Provider: Ori Westfall MD Diagnosis: 1 po q 4h prn pain Last Documented On 4 7:44AM By Ori Westfall ; [facility], [facility] Medications Administered Includes: Administered Medications from [...] his right leg is doing much better Social History Description Last Updated Caffeine use 05/13/2024 Last Documented On 4 8:57AM ; [facility] No recent change in diet 05/13/2024 Last Documented On 4 8:57AM ; [facility] Not exercising regularly 05/13/2024 Last Documented On 4 8:57AM ; [facility] Not using alcohol 05/13/2024 Last Documented On 4 8:57AM ; [facility] Not using drugs 05/13/2024 Last Documented On 4 8:57AM ; [facility] Yes, current smoker. 05/13/2024 Last Documented On 4 8:57AM ; [facility], [facility] Smoking Status Unknown Procedures and Surgical History Includes: Procedures from this encounter Procedures Code Diagnosis Performing Provider Service L ocation Service Date an MRI was performed 05/20/2024 [facility] MRI LSPINE [id number] Last Documented On 4 8:57AM ; [facility], [facility] Medical History Includes: Medical History addressed during this encounter Description Last Updated History of arthritis 05/13/2024 Last Documented On 4 8:57AM ; [facility], [facility] History of Hypertension 05/13/2024 Last Documented On 4 8:57AM ; [facility], [facility] History of Sleep Apnea 05/13/2024 Last Documented On 4 8:57AM ; [facility], [facility] Use of CPAP 05/13/2024 Last Documented On 4 8:57AM ; [facility], [facility] Family History Includes: Family History addressed during this encounter Description Last Updated No significant family history 05/13/2024 Last Documented On 4 8:57AM ; [facility], [facility] Review of Systems Includes: Review of [...] Check-In Time Check-Out Time Diagnosis Post Op Emir Anthony PA-C [facility] 4 8:54AM 9:16AM Overweight Insurance Includes: Active Insurance Policies Plan Name Member ID Group # Subscriber Relationship Effect nitin Dates 1 - Medicare Part B [facility] [id number] Chanel Ziegler Self 2 - [employer] MEDICARE [id number] Chanel Ziegler Self Clinical Notes Includes: Clinical Notes from this encounter * Progress note Date Encounter Last Documented by 08/03/2024 Post Op Last documented on 08/03/2024; 9:13 AM, Emir Anthony PA-C; [facility], [facility] Active Problems & Conditions - [...] MRI Scan: An MRI was performed 05/20/2024 [facility] MRI [facility]. Available previous imaging studies were reviewed Available [...]
[2024-12-28 10:34] LABS: Basophils # 0.1 K/mm3 (0-0.2); Eosinophils # 0.2 Kmm3 (0.0-0.4); Eosinophils % 3.7 % (0.1-12.0); Hematocrit 38.3 % (42.0-52.0); Lymphocytes % 16.9 % (10-50); Mean Corpuscular HGB Conc 33.9 g/dL (31.8-35.4); Mean Corpuscular Hemoglobin 28.8 pg (27.0-31.2); Mean Corpuscular Volume 84.7 fl (80-94); Mean Platelet Volume 9.8 fl (7.4-10.4); Monocytes # 0.6 K/mm3 (0.1-1.0); Monocytes % 9.4 % (1.7-9.3); Neutrophils # 4.2 K/mm3 (1.8-7.8); Neutrophils % 68.8 % (37.0-80.0); Nucleated Red Blood Cells # 0 10^3/uL; Nucleated Red Blood Cells % 0 %; Platelet Count 202 K/mm3 (142-424); Red Blood Count 4.52 M/mm3 (4.60-6.20); Red Cell Distribution Width 13.2 % (11.5-17.5); Red Cell Distribution Width-SD 40.4 fL; White Blood Count 6.1 K/mm3 (4.8-10.8)
[2024-12-28 11:22] LABS: Alanine Aminotransferase 17 U/L (12-78); Albumin Level 4.1 g/dl (3.5-5.0); Alkaline Phosphatase 77 U/L (38-126); Anion Gap 7.1 mEq/L (5-15); Aspartate Amino Transferase 23 U/L (17-59); Bilirubin,Direct 0.3 mg/dl (0.0-0.4); Bilirubin,Indirect 0.4 mg/dL (0.0-0.9); Bilirubin,Total 0.7 mg/dl (0.2-1.3); Bilirubin,Unconjugated 0.4 mg/dL (0.0-1.1); Blood Urea Nitrogen 15 mg/dl (9-20); Calcium 8.5 mg/dl (8.4-10.2); Carbon Dioxide 29 mmol/L (22.0-30.0); Chloride 105 mmol/L (98-107); Chol/HDL Ratio 2.9 (1-3.5); Cholesterol 109 mg/dl (140-200); Estimated Glomerular Filt Rate 74 ml/min (>60); GFR (African American) 90 ML/MIN (>60); Glucose 93 mg/dl (74-100); HDL Cholesterol 37 mg/dl (40-60); Magnesium 2.1 mg/dl (1.6-2.3); Potassium 4.1 mmoL/L (3.5-5.1); Sodium 137 mmol/L (136-145); Total Protein,Serum 6.4 g/dl (6.3-8.2); Triglycerides 51 mg/dl (30-150); VLDL Cholesterol 10 mg/dL (0-40)
[2024-12-28 11:39] LABS: Free T4 (Free Thyroxine) 1.12 ng/dl (0.78-2.19)
[2024-12-28 11:52] LABS: Thyroid Stimulating Hormone 2.91 uIU/mL (0.465-4.68)
== END 2024-12-28 23:59 | disposition home or self-care (01) ==
LOC: LAB 10:03
PROVIDERS: PCP Family Medicine; Visit Provider Physician Assistant
DX: E78.5 Hyperlipidemia, unspecified (principal); Z68.35 Body mass index [BMI] 35.0-35.9, adult; E87.6 Hypokalemia; G47.33 Obstructive sleep apnea (adult) (pediatric); I11.9 Hypertensive heart disease without heart failure; E03.9 Hypothyroidism, unspecified; R53.83 Other fatigue; E66.9 Obesity, unspecified; Z87.891 Personal history of nicotine dependence
CPT/HCPCS: 36415; 80048; 80061; 80076; 83735; 84439; 84443; 85025

== ENCOUNTER 2025-06-30 09:27 | Outpatient (CLI) | payer MEDICARE, SELFPAY ==
--- OUTSIDE RECORDS SUMMARY | 2025-06-30 09:40 | XMS_ITS | Clinical Summary ---
Author Organization Healthcare Address [address] [place], [place] [address] Care Team Providers Care Loss Prevention Associate Name Role Phone Unavailable Primary Care Provider Unavailabl e Social History Tobacco Use Types Packs/Day Years Used Date Smoking Tobacco: Never Assessed Sex and Gender Information Value Date Recorded Sex Assigned at Not on file Legal Sex Male 8:01 PM EDT Gender Identity Not on file Sexual Orientation Not on file Last Filed Vital Signs Vital Sign Reading Time Taken Comments Blood Pressure 136/73 02/11/2023 4:30 PM EDT Pulse 64 02/11/2023 4:30 PM EDT Temperature - - Respiratory Rate - - Oxygen Saturation - - Inhaled Oxygen Concentration - - Weight 119 kg (262 lb) 02/11/2023 4:30 PM EDT Height 185.4 cm (6' 1 ) 02/11/2023 4:30 PM EDT Body Mass Index 34.57 02/11/2023 4:30 PM EDT Plan of Treatment Health Maintenance Due Date Last Done Comments [facility]-Depression Screening 1956 [facility]-Infant/Child/Adol SDOH Screenings 1955 [facility]- SDOH Screenings 1974 [facility]-Adult SDOH Screenings 1974 CT Colonography 2001 Colonoscopy 2001 FIT-DNA 2001 FIT 2001 FOBT 2001 Sigmoidoscopy 2001 [facility]-Colorectal Cancer Screening 2001 [facility]-Pneumococcal Vaccine: 50 + Years (1 of 1 - PCV) 2006 [facility]-Zoster Vaccines (1 of 2) 2006 [id number] Vaccine (3 - 2025-26 season) 2025 12/10/2020, 11/15/2020 [facility]-Influenza Vaccine (#1) 2025 [facility]-DTaP,Tdap,and Td Vaccine s (2 - Td or Tdap) 01/03/2031 01/03/2021, 11/02/1996 [facility]-RSV Vaccine: 60+ Years o r (1 - 1-dose 75+ series) 2031 HPV Vaccines Aged Out No longer eligi ble based on patient's age to complete this topic [facility]-HIB Vaccines Aged Out No longer e ligible based on patient's age to complete this topic [facility]-Hepatitis A Vaccines Aged Out No longer eligible based on patient's age to complete this topic [facility]-IPV Vaccines Aged Out No longer e ligible based on patient's age to complete this topic [facility]-Rotavirus Vaccines Aged Out No lo nger eligible based on patient's age to complete this [place] [address] [employer]
[2025-06-30 10:12] LABS: Hematocrit 38.3 % (42.0-52.0); Hemoglobin 12.9 g/dL (14.1-18.0); Immature Granulocytes % 0.3 %; Mean Corpuscular HGB Conc 33.7 g/dL (31.8-35.4); Mean Corpuscular Hemoglobin 28.5 pg (27.0-31.2); Mean Corpuscular Volume 84.5 fl (80-94); Nucleated Red Blood Cells % 0 %; Platelet Count 185 K/mm3 (142-424); Red Blood Count 4.53 M/mm3 (4.60-6.20); Red Cell Distribution Width-SD 41.1 fL; White Blood Count 6.7 K/mm3 (4.8-10.8)
[2025-06-30 10:47] LABS: Alanine Aminotransferase 16 U/L (12-78); Albumin Level 3.2 g/dl (3.5-5.0); Alkaline Phosphatase 106 U/L (38-126); Anion Gap 8.7 mEq/L (5-15); Aspartate Amino Transferase 24 U/L (17-59); Bilirubin,Direct 0.2 mg/dl (0.0-0.4); Bilirubin,Indirect 0.5 mg/dL (0.0-0.9); Bilirubin,Total 0.7 mg/dl (0.2-1.3); Bilirubin,Unconjugated 0.5 mg/dL (0.0-1.1); Blood Urea Nitrogen 19 mg/dl (9-20); Calcium 8.4 mg/dl (8.4-10.2); Carbon Dioxide 30 mmol/L (22.0-30.0); Chloride 102 mmol/L (98-107); Cholesterol 113 mg/dl (140-200); Creatinine,Serum 1.10 mg/dl (0.66-1.25); Estimated Glomerular Filt Rate 66 ml/min (>60); GFR (African American) 80 ML/MIN (>60); Glucose 98 mg/dl (74-100); HDL Cholesterol 38 mg/dl (40-60); Magnesium 1.9 mg/dl (1.6-2.3); Potassium 3.7 mmoL/L (3.5-5.1); Sodium 137 mmol/L (136-145); Total Protein,Serum 6.9 g/dl (6.3-8.2); Triglycerides 57 mg/dl (30-150)
[2025-06-30 11:05] LABS: Free T4 (Free Thyroxine) 1.12 ng/dl (0.78-2.19)
[2025-06-30 11:17] LABS: Thyroid Stimulating Hormone 3.85 uIU/mL (0.465-4.68)
== END 2025-06-30 23:59 | disposition home or self-care (01) ==
LOC: LAB 09:30
PROVIDERS: PCP Nurse Practitioner Family; Visit Provider Physician Assistant
DX: E78.5 Hyperlipidemia, unspecified (principal); I10 Essential (primary) hypertension; M79.604 Pain in right leg; R06.09 Other forms of dyspnea; I70.211 Atherosclerosis of native arteries of extremities with intermittent claudication, right leg; Z82.49 Family history of ischemic heart disease and other diseases of the circulatory system
CPT/HCPCS: 36415; 80048; 80061; 80076; 83735; 84439; 84443; 85025

== ENCOUNTER 2025-07-04 07:48 | Outpatient (CLI) | payer MEDICARE, SELFPAY ==
--- OUTSIDE RECORDS SUMMARY | 2025-07-04 07:50 | XMS_ITS | Clinical Summary ---
Author Organization Healthcare Address [address] [place], [place] [id number] Care Team Providers Care Perfume Maker Name Role Phone Unavailable Primary Care Provider [...] 2006 [facility]-Zoster Vaccines (1 of 2) 2006 [id number] Vaccine (3 - 2025-26 season) 2025 12/10/2020, [...] age to complete this topic [place] [address] [employer]
--- NOTE | 2025-07-04 08:00 | US_ITS ---
FINAL REPORT TECHNIQUE: Ankle-brachial indices were obtained. CLINICAL HISTORY: Claudication,REST PAIN,HTN,EXSMOKER FINDINGS: COMPLETE ANKLE/BRACHIAL INDICES BILATERAL The right IGLESIA measures 1.2. The left IGLESIA measures 1.2. IMPRESSION: ABIs are within normal limits bilaterally. Reviewed, Interpreted and Dictated by Patience Hernandes MD Transcribed by Mary Meneses Authenticated and [facility]
== END 2025-07-04 23:59 | disposition home or self-care (01) ==
LOC: RT 07:49
PROVIDERS: PCP Family Medicine; Visit Provider Physician Assistant
DX: E78.5 Hyperlipidemia, unspecified (principal); Z82.49 Family history of ischemic heart disease and other diseases of the circulatory system; I10 Essential (primary) hypertension; M79.604 Pain in right leg; R06.09 Other forms of dyspnea; I70.211 Atherosclerosis of native arteries of extremities with intermittent claudication, right leg; Z87.891 Personal history of nicotine dependence
CPT/HCPCS: 93923